=== PATIENT | female | born 1940 | race Caucasian/White ===

== ENCOUNTER 2020-04-14 12:54 | Inpatient (IN) | payer OTHER ==
[~2020-04-14] VITALS: Ht 162.6 cm; Wt 80.1 kg
[~2020-04-14 12:54] MED LIST: AMIO200 PO; ASPI81CH PO; ATOR40TA PO; Antivert25 MG PO; Ativan1 MG SL; Augmentin 875-1 EACH PO; CALCA500CH PO; CIPR500 PO; DOCU100; DONE5 PO; Docusate Sodiu1 EACH PO; ERGO400 PO; FLUO10 PO; FOLI1 PO; FURO20 PO; GINKO BILOBA; HYDACE5 PO; HYDR1TAB94 PO; LEVSOD100 PO; LEVSOD150; LEVSOD25 PO; LOSA50 PO; MECL25 PO; METR500 PO; MULVITMIND PO; NAPR500; NAPROSYN; Norco 5-325 Ta1 EACH PO; PEPTO BISMOL; PHYSICIANS1000 MCG/1 PO; POTCHL10ER PO; PRAV20 PO; Pravastatin Sod40 MG PO; RISE35; SILVER SUPPLEMENT; TAMO10; THYROID; VENL37.5; VENL37.5ER; VITAMIN B PO; Vitamin C100 MG PO; XARELTO20 MG PO; colloidal silver
[2020-04-14 13:05] LABS: Calcium, Ionized (POC) 1.15 mmol/L (1.10-1.46); Chloride (POC) 103 mmol/L (98-108); Glucose (ISTAT POC) 87 mg/dL (70-99); Hemoglobin (POC) 12.9 g/dL (12.0-16.0); Potassium (POC) 3.6 mmol/L (3.5-5.5); Sodium (POC) 141 mmol/L (135-148); Total CO2 (POC) 25 mmol/L (21-32)
[2020-04-14 13:12] LABS: BASOPHILS ABSOLUTE AUTO 0.08 K/mm3 (0.00-0.23); BASOPHILS PERCENT AUTO 1 % (0-2); EOSINOPHILS ABSOLUTE AUTO 0.18 K/mm3 (0.00-0.68); EOSINOPHILS PERCENT AUTO 3 % (0-6); Hematocrit 38.8 % (33.0-51.0); Hemoglobin 12.6 g/dL (11.5-16.0); IMMATURE GRAN ABSOLUTE AUTO 0.02 K/mm3 (0.00-0.10); IMMATURE GRAN PERCENT AUTO 0 % (0-1); LYMPHOCYTES ABSOLUTE AUTO 2.91 K/mm3 (0.84-5.20); LYMPHOCYTES PERCENT AUTO 45 % (21-46); MONOCYTES ABSOLUTE AUTO 0.45 K/mm3 (0.16-1.47); MONOCYTES PERCENT AUTO 7 % (4-13); Mean Corpuscular HGB 30.4 pg (26.0-34.0); Mean Corpuscular HGB Conc 32.5 g/dL (31.5-36.5); Mean Corpuscular Volume 94 fL (80-100); Mean Platelet Volume 10.2 fL (9.1-12.4); NEUTROPHILS ABSOLUTE AUTO 2.82 K/mm3 (1.96-9.15); NEUTROPHILS PERCENT AUTO 44 % (41-73); Platelet Count 182 K/mm3 (150-400); RDW Coefficient Variation 15.9 % (11.7-14.2); RDW Standard Deviation 54.5 fL (35.1-46.3); Red Blood Cell Count 4.15 M/mm3 (3.80-5.20); White Blood Cell Count 6.46 K/mm3 (4.00-11.30)
[2020-04-14 13:16] LABS: PO2 Arterial 95.6 mmHg (80-100); pH Blood Arterial 7.47 (7.35-7.45)
[2020-04-14 13:42] LABS: Alanine Aminotransfer (ALT/SGP 19 U/L (12-78); Albumin, Blood 4.2 g/dL (3.4-5.0); Albumin/Globulin Ratio 1.1 (0.8-1.8); Alk Phos 55 U/L (50-136); Anion Gap 3 mmol/L (6-16); Aspartate Aminotrans (AST/SGOT 49 U/L (12-37); Bilirubin, Total 0.7 mg/dL (0.1-1.0); Blood Urea Nitrogen 10 mg/dL (8-24); Bun/Creatinine Ratio 9.6 (12.0-20.0); CO2, Blood 30 mmol/L (21-32); Chloride, Blood 108 mmol/L (98-108); Creatinine, Blood 1.04 mg/dL (0.40-1.00); Globulin, Blood 3.7 g/dL (2.2-4.0); Glomerular Filtration Rate 55 (60-); Glucose, Blood 84 mg/dL (70-99); Potassium, Blood 3.3 mmol/L (3.5-5.5); Sodium, Blood 141 mmol/L (136-145); Total Protein, Blood 7.9 g/dL (6.4-8.2); Troponin I <0.015 ng/mL (0.000-0.040)
[2020-04-14 14:08] LABS: Free Thyroxine 0.22 ng/dL (0.70-1.60)
[2020-04-14 14:56] LABS: Source, Urine Clean Catch
[2020-04-14 15:09] LABS: Appearance, Urine Clear (Clear); Bilirubin, Urine Neg (Neg); Blood, Urine Neg (Neg); Color, Urine Yellow (P-Yellow); Glucose Qualitative, Urine Neg (Neg); Ketones, Urine Neg (Neg); Leukocyte Esterase, Urine Neg (Neg); Nitrite, Urine Neg (Neg); Protein, Urine Neg (Neg); Specific Gravity, Urine 1.015 (1.003-1.022); Urobilinogen, Urine NORM (Normal)
[2020-04-14] MEDS ORDERED: LEVSOD100 PO (15:30)
--- NOTE | 2020-04-14 18:40 | NUR ---
PT ARRIVED 1824 AOX3 AND COOPERATIVE OF CARE. PT IS A STANDBY ASSIST TO RESTROOM. CALL LIGHT IS WITHIN REACH. PT DENIES ANY PAIN AT THIS TIME AND STATED THE PAIN HAS RESOLVED. WILL CONTINUE TO MONITOR.
--- NOTE | 2020-04-14 20:26 | NUR ---
PT HAPPY AND COOPERATIVE; DENIES PAIN OR NAUSEA.
--- NOTE | 2020-04-14 22:44 | NUR ---
5726 REPORT RECEIVED FROM KRISTYN SALGUERO RN; PT MOVED FROM RM 352 TO 359 FOR NURSING CONVIENIENCE; ALERT AND ORIENTED X 4; DENIES PAIN OR NAUSEA.
--- NOTE | 2020-04-15 04:27 | NUR ---
SHIFT SUMMARY: 79 Y/O FEMALE RESTED COMFORTABLY ALL SHIFT; DENIES PAIN OR NAUSEA; TELEMETRY REFLECTS SINUS BRADYCARDIA PER ANTONY--ACCOUNT ASSISTANT; ALERT AND ORIENTED X 4; HAPPY AND COOPERATIVE; BED LOW POSITION WITH CALL LIGHT AT SIDE.
[2020-04-15 05:48] LABS: BASOPHILS PERCENT AUTO 2 % (0-2); EOSINOPHILS ABSOLUTE AUTO 0.27 K/mm3 (0.00-0.68); EOSINOPHILS PERCENT AUTO 4 % (0-6); Hematocrit 36.1 % (33.0-51.0); Hemoglobin 11.6 g/dL (11.5-16.0); IMMATURE GRAN ABSOLUTE AUTO 0.02 K/mm3 (0.00-0.10); IMMATURE GRAN PERCENT AUTO 0 % (0-1); LYMPHOCYTES ABSOLUTE AUTO 2.58 K/mm3 (0.84-5.20); LYMPHOCYTES PERCENT AUTO 38 % (21-46); MONOCYTES PERCENT AUTO 7 % (4-13); Mean Corpuscular HGB 30.1 pg (26.0-34.0); Mean Corpuscular HGB Conc 32.1 g/dL (31.5-36.5); Mean Corpuscular Volume 94 fL (80-100); Mean Platelet Volume 10.2 fL (9.1-12.4); NEUTROPHILS ABSOLUTE AUTO 3.39 K/mm3 (1.96-9.15); NEUTROPHILS PERCENT AUTO 49 % (41-73); Platelet Count 169 K/mm3 (150-400); RDW Coefficient Variation 15.9 % (11.7-14.2); RDW Standard Deviation 54.6 fL (35.1-46.3); Red Blood Cell Count 3.86 M/mm3 (3.80-5.20); White Blood Cell Count 6.86 K/mm3 (4.00-11.30)
[2020-04-15 06:42] LABS: Alanine Aminotransfer (ALT/SGP 19 U/L (12-78); Albumin, Blood 3.7 g/dL (3.4-5.0); Albumin/Globulin Ratio 1.1 (0.8-1.8); Alk Phos 51 U/L (50-136); Anion Gap 7 mmol/L (6-16); Aspartate Aminotrans (AST/SGOT 41 U/L (12-37); Bilirubin, Total 0.6 mg/dL (0.1-1.0); Blood Urea Nitrogen 14 mg/dL (8-24); Bun/Creatinine Ratio 15.4 (12.0-20.0); CO2, Blood 26 mmol/L (21-32); Calcium, Blood 8.9 mg/dL (8.5-10.1); Chloride, Blood 107 mmol/L (98-108); Creatinine, Blood 0.91 mg/dL (0.40-1.00); Free Thyroxine 0.51 ng/dL (0.70-1.60); Globulin, Blood 3.5 g/dL (2.2-4.0); Glomerular Filtration Rate >60 (60-); Glucose, Blood 89 mg/dL (70-99); Potassium, Blood 3.7 mmol/L (3.5-5.5); Sodium, Blood 140 mmol/L (136-145); Total Protein, Blood 7.2 g/dL (6.4-8.2); Triiodothyronine, Free 0.91 pg/mL (2.18-3.98)
--- NOTE | 2020-04-15 18:56 | NUR ---
SHIFT SUMMARY- PT ALERT AND ORIENTED, INDEPENDENT IN THE ROOM; HOWEVER WHEN THE PT WAS NAPPING AND WOKE UP TO GO TO THE BATHROOM, SHE WAS VERY UNSTEADY ON HER FEET. PASSED ON TO NIGHT SCIENTIST ELECTRONICS THAT THE PT WOULD NEED A BED ALARM.
--- NOTE | 2020-04-16 03:52 | NUR ---
SHIFT SUMMARY A/O, ABLE TO MAKE NEEDS KNOWN. COOPERATIVE WITH CARE. CALLS AND ANSWERS QUESTIONS APPROPRIATELY. NO C/O PAIN/DISCOMFORT. APPEARED TO REST MUCH OF SHIFT. NO ACUTE NEEDS OVERNIGHT. TELE RUNNING SINUS ROSE IN 50's WITHOUT ANY EVENTS. NO ACUTE CHANGES NOTED. BED REMAINS IN LOWEST POSITION; ALARM ON FOR SAFETY. CALL LIGHT AND BELONGINGS WITHIN REACH. WCTM. REPORT TO ONCOMING RN.
[2020-04-16 06:48] LABS: Albumin, Blood 3.5 g/dL (3.4-5.0); Bilirubin, Total 0.7 mg/dL (0.1-1.0); Bun/Creatinine Ratio 13.2 (12.0-20.0); Calcium, Blood 8.6 mg/dL (8.5-10.1); Creatinine, Blood 1.06 mg/dL (0.40-1.00); Free Thyroxine 0.45 ng/dL (0.70-1.60); Globulin, Blood 3.5 g/dL (2.2-4.0); Potassium, Blood 3.7 mmol/L (3.5-5.5); Triiodothyronine, Free 1.32 pg/mL (2.18-3.98)
--- NOTE | 2020-04-16 15:23 | NUR ---
PT DCD HOME WITH HER . MED REC FAXED TO PHARMACY OF CHOICE. ALL INSTRUCTIONS REVIEWED WITH THE PT WHO VERBALIZED AN UNDERSTANDING. IV REMOVED WITH NO ISSUE. ALL PERSONAL BELONGINGS SENT WITH THE PT. PT ASSISTED DOWNSTAIRS BY THE MANUFACTURING ENGINEERING TECHNICIAN.
== END 2020-04-16 15:13 | disposition home or self-care (01) | DRG 643 ==
LOC: ER 12:54 → MEDS 16:54 → ENPENDDIS 04-16 13:50 → MEDS 04-16 15:13
PROVIDERS: Emergency Medicine; Family Medicine; Student in an Organized Health Care Education/Training Program; ADMIT Hospitalist
DX: E03.8 Other specified hypothyroidism (principal); E03.5 Myxedema coma; E87.6 Hypokalemia; I10 Essential (primary) hypertension; R07.9 Chest pain, unspecified; R79.89 Other specified abnormal findings of blood chemistry; Z85.3 Personal history of malignant neoplasm of breast; Z85.850 Personal history of malignant neoplasm of thyroid; Z87.891 Personal history of nicotine dependence
CPT/HCPCS: 36415; 36600; 74177; 80047; 80053; 81003; 82533; 82803; 83880; 84439; 84443; 84481; 84484; 85014; 85025; 86850; 86900; 86901; 93005; 93010; 97161; 97530; 99285-25; A9270; A9270-GY; J1650; Q9967

== ENCOUNTER 2020-05-07 01:30 | Emergency (ER) | payer OTHER ==
[~2020-05-07] VITALS: Ht 160 cm; Wt 90.7 kg
[2020-05-07 01:56] LABS: BASOPHILS ABSOLUTE AUTO 0.11 K/mm3 (0.00-0.23); BASOPHILS PERCENT AUTO 2 % (0-2); EOSINOPHILS ABSOLUTE AUTO 0.19 K/mm3 (0.00-0.68); EOSINOPHILS PERCENT AUTO 3 % (0-6); Hematocrit 38.1 % (33.0-51.0); Hemoglobin 12.1 g/dL (11.5-16.0); IMMATURE GRAN ABSOLUTE AUTO 0.04 K/mm3 (0.00-0.10); IMMATURE GRAN PERCENT AUTO 1 % (0-1); LYMPHOCYTES PERCENT AUTO 43 % (21-46); MONOCYTES PERCENT AUTO 8 % (4-13); Mean Corpuscular HGB 30.7 pg (26.0-34.0); Mean Corpuscular HGB Conc 31.8 g/dL (31.5-36.5); Mean Corpuscular Volume 97 fL (80-100); NEUTROPHILS ABSOLUTE AUTO 3.24 K/mm3 (1.96-9.15); NEUTROPHILS PERCENT AUTO 45 % (41-73); Platelet Count 211 K/mm3 (150-400); RDW Coefficient Variation 14.3 % (11.7-14.2); RDW Standard Deviation 50.8 fL (35.1-46.3); Red Blood Cell Count 3.94 M/mm3 (3.80-5.20); White Blood Cell Count 7.28 K/mm3 (4.00-11.30)
[2020-05-07 02:12] LABS: Alanine Aminotransfer (ALT/SGP 20 U/L (12-78); Albumin, Blood 3.9 g/dL (3.4-5.0); Alk Phos 77 U/L (50-136); Anion Gap 6 mmol/L (6-16); Aspartate Aminotrans (AST/SGOT 37 U/L (12-37); Bilirubin, Total 0.6 mg/dL (0.1-1.0); Blood Urea Nitrogen 15 mg/dL (8-24); Bun/Creatinine Ratio 19.2 (12.0-20.0); CO2, Blood 28 mmol/L (21-32); Calcium, Blood 8.9 mg/dL (8.5-10.1); Chloride, Blood 107 mmol/L (98-108); Creatinine, Blood 0.78 mg/dL (0.40-1.00); Free Thyroxine 1.82 ng/dL (0.70-1.60); Glomerular Filtration Rate >60 (60-); Glucose, Blood 132 mg/dL (70-99); Magnesium, Blood 2.1 mg/dL (1.6-2.4); Potassium, Blood 3.6 mmol/L (3.5-5.5); Sodium, Blood 141 mmol/L (136-145); Thyroid Stimulating Hormone 0.522 uIU/mL (0.360-4.800); Total Protein, Blood 7.9 g/dL (6.4-8.2); Triiodothyronine, Free 3.76 pg/mL (2.18-3.98)
[2020-05-07 02:15] LABS: Source, Urine Catheter
[2020-05-07 02:19] LABS: Bilirubin, Urine Neg (Neg); Blood, Urine Neg (Neg); Glucose Qualitative, Urine Neg (Neg); Ketones, Urine 1+ (Neg); Leukocyte Esterase, Urine Neg (Neg); Nitrite, Urine Neg (Neg); Protein, Urine Neg (Neg); Specific Gravity, Urine 1.015 (1.003-1.022); Urobilinogen, Urine NORM (Normal)
[2020-05-07 02:21] LABS: Appearance, Urine Clear (Clear); Color, Urine Yellow (P-Yellow)
[2020-05-07] MEDS ORDERED: ONDA4ODT MM (03:00)
== END 2020-05-07 03:37 | disposition home or self-care (01) ==
LOC: ER 01:30
PROVIDERS: Emergency Medicine
DX: R11.2 Nausea with vomiting, unspecified (principal); Z88.2 Allergy status to sulfonamides; Z88.1 Allergy status to other antibiotic agents; Z91.09 Other allergy status, other than to drugs and biological substances; Z91.013 Allergy to seafood; Z79.899 Other long term (current) drug therapy; Z87.891 Personal history of nicotine dependence
CPT/HCPCS: 74176; 80053; 81003; 83690; 83735; 84439; 84443; 84481; 85025; 93005; 93010; 96361; 96374; 99285-25; J2765; J7030

== ENCOUNTER 2021-01-02 19:12 | Emergency (ER) | payer OTHER ==
[~2021-01-02] VITALS: Ht 160 cm; Wt 72.6 kg
[~2021-01-02 19:12] MED LIST changes: +ONDA4ODT MM
[2021-01-02] MEDS ORDERED: DONEPEZIL HCL5 M2 PO (19:27)
[2021-01-02 19:42] LABS: BASOPHILS ABSOLUTE AUTO 0.06 K/mm3 (0.00-0.23); BASOPHILS PERCENT AUTO 1 % (0-2); EOSINOPHILS ABSOLUTE AUTO 0.02 K/mm3 (0.00-0.68); EOSINOPHILS PERCENT AUTO 0 % (0-6); Hematocrit 37.3 % (33.0-51.0); Hemoglobin 11.9 g/dL (11.5-16.0); IMMATURE GRAN ABSOLUTE AUTO 0.01 K/mm3 (0.00-0.10); IMMATURE GRAN PERCENT AUTO 0 % (0-1); LYMPHOCYTES ABSOLUTE AUTO 1.21 K/mm3 (0.84-5.20); LYMPHOCYTES PERCENT AUTO 25 % (21-46); MONOCYTES ABSOLUTE AUTO 1.03 K/mm3 (0.16-1.47); MONOCYTES PERCENT AUTO 21 % (4-13); Mean Corpuscular HGB 27.7 pg (26.0-34.0); Mean Corpuscular HGB Conc 31.9 g/dL (31.5-36.5); Mean Corpuscular Volume 87 fL (80-100); Mean Platelet Volume 10.8 fL (9.1-12.4); NEUTROPHILS ABSOLUTE AUTO 2.48 K/mm3 (1.96-9.15); NEUTROPHILS PERCENT AUTO 52 % (41-73); Platelet Count 161 K/mm3 (150-400); RDW Coefficient Variation 14.2 % (11.7-14.2); Red Blood Cell Count 4.29 M/mm3 (3.80-5.20); White Blood Cell Count 4.81 K/mm3 (4.00-11.30)
[2021-01-02 20:07] LABS: Alanine Aminotransfer (ALT/SGP 18 U/L (12-78); Albumin, Blood 3.6 g/dL (3.4-5.0); Alk Phos 89 U/L (50-136); Anion Gap 8 mmol/L (6-16); Aspartate Aminotrans (AST/SGOT 31 U/L (12-37); Bilirubin, Total 0.3 mg/dL (0.1-1.0); Blood Urea Nitrogen 11 mg/dL (8-24); Bun/Creatinine Ratio 16.5 (12.0-20.0); CO2, Blood 22 mmol/L (21-32); Calcium, Blood 8.7 mg/dL (8.5-10.1); Chloride, Blood 108 mmol/L (98-108); Creatinine, Blood 0.67 mg/dL (0.40-1.00); Globulin, Blood 3.7 g/dL (2.2-4.0); Glomerular Filtration Rate >60 (60-); Glucose, Blood 108 mg/dL (70-99); Potassium, Blood 3.8 mmol/L (3.5-5.5); Sodium, Blood 138 mmol/L (136-145); Total Protein, Blood 7.3 g/dL (6.4-8.2)
== END 2021-01-02 21:26 | disposition home or self-care (01) ==
LOC: ER 19:12
PROVIDERS: Emergency Medicine
DX: R10.13 Epigastric pain (principal); Z88.2 Allergy status to sulfonamides; Z88.1 Allergy status to other antibiotic agents; Z91.048 Other nonmedicinal substance allergy status; Z91.013 Allergy to seafood; Z87.891 Personal history of nicotine dependence
CPT/HCPCS: 80053; 83690; 85025; 93005; 93010; 99284-25

== ENCOUNTER 2021-01-08 09:35 | Emergency (ER) | payer OTHER ==
[~2021-01-08] VITALS: Ht 154.9 cm; Wt 63.5 kg
[~2021-01-08 09:35] MED LIST changes: +DONEPEZIL HCL5 M2 PO
[2021-01-08 10:01] LABS: Hematocrit 38.2 % (33.0-51.0); Hemoglobin 12.5 g/dL (11.5-16.0); Mean Corpuscular HGB 27.9 pg (26.0-34.0); Mean Corpuscular HGB Conc 32.7 g/dL (31.5-36.5); Mean Corpuscular Volume 85 fL (80-100); Mean Platelet Volume 11.7 fL (9.1-12.4); Platelet Count 142 K/mm3 (150-400); RDW Coefficient Variation 13.7 % (11.7-14.2); RDW Standard Deviation 42.8 fL (35.1-46.3); Red Blood Cell Count 4.48 M/mm3 (3.80-5.20); White Blood Cell Count 3.14 K/mm3 (4.00-11.30)
[2021-01-08 10:29] LABS: BAND PERCENT MAN 3 % (0-8); BASOPHILS ABSOLUTE MAN 0.03 K/mm3 (0.00-0.23); BASOPHILS PERCENT MAN 1 % (0-2); EOSINOPHILS PERCENT MAN 0 % (0-6); LYMPHOCYTES ABSOLUTE MAN 1.31 K/mm3 (0.84-5.20); LYMPHOCYTES PERCENT MAN 42 % (21-46); MONOCYTES ABSOLUTE MAN 0.28 K/mm3 (0.16-1.47); MONOCYTES PERCENT MAN 9 % (4-13); SEG NEUTROPHILS PERCENT MAN 45 % (41-73); TOTAL CELLS COUNTED 100
[2021-01-08 10:30] LABS: Alanine Aminotransfer (ALT/SGP 22 U/L (12-78); Albumin, Blood 3.5 g/dL (3.4-5.0); Alk Phos 81 U/L (50-136); Anion Gap 6 mmol/L (6-16); Aspartate Aminotrans (AST/SGOT 46 U/L (12-37); Bilirubin, Total 0.5 mg/dL (0.1-1.0); Blood Urea Nitrogen 11 mg/dL (8-24); Bun/Creatinine Ratio 15.1 (12.0-20.0); CO2, Blood 25 mmol/L (21-32); Calcium, Blood 8.6 mg/dL (8.5-10.1); Chloride, Blood 108 mmol/L (98-108); Creatinine, Blood 0.73 mg/dL (0.40-1.00); Globulin, Blood 3.4 g/dL (2.2-4.0); Glomerular Filtration Rate >60 (60-); Glucose, Blood 114 mg/dL (70-99); Potassium, Blood 3.4 mmol/L (3.5-5.5); Sodium, Blood 139 mmol/L (136-145); Total Protein, Blood 6.9 g/dL (6.4-8.2); Troponin I <0.015 ng/mL (0.000-0.040)
== END 2021-01-08 11:50 | disposition home or self-care (01) ==
LOC: ER 09:35
PROVIDERS: Emergency Medicine
DX: U07.1 COVID-19 (principal); Z85.3 Personal history of malignant neoplasm of breast; Z79.890 Hormone replacement therapy
CPT/HCPCS: 36415; 71045; 80053; 83690; 84484; 85025; 93005; 93010; 99284-25; J7030; M0243; Q0243

== ENCOUNTER → 2021-02-19 | Outpatient (CLI) | payer OTHER ==
[2021-02-19 13:39] LABS: BASOPHILS ABSOLUTE AUTO 0.04 K/mm3 (0.00-0.23); BASOPHILS PERCENT AUTO 1 % (0-2); EOSINOPHILS ABSOLUTE AUTO 0.12 K/mm3 (0.00-0.68); EOSINOPHILS PERCENT AUTO 2 % (0-6); Hematocrit 39.8 % (33.0-51.0); Hemoglobin 12.9 g/dL (11.5-16.0); IMMATURE GRAN ABSOLUTE AUTO 0.01 K/mm3 (0.00-0.10); IMMATURE GRAN PERCENT AUTO 0 % (0-1); LYMPHOCYTES ABSOLUTE AUTO 1.96 K/mm3 (0.84-5.20); LYMPHOCYTES PERCENT AUTO 29 % (21-46); MONOCYTES PERCENT AUTO 7 % (4-13); Mean Corpuscular HGB 27.9 pg (26.0-34.0); Mean Corpuscular HGB Conc 32.4 g/dL (31.5-36.5); Mean Corpuscular Volume 86 fL (80-100); Mean Platelet Volume 10.2 fL (9.1-12.4); NEUTROPHILS ABSOLUTE AUTO 4.24 K/mm3 (1.96-9.15); NEUTROPHILS PERCENT AUTO 62 % (41-73); Platelet Count 227 K/mm3 (150-400); RDW Coefficient Variation 14.1 % (11.7-14.2); RDW Standard Deviation 43.8 fL (35.1-46.3); Red Blood Cell Count 4.63 M/mm3 (3.80-5.20); White Blood Cell Count 6.87 K/mm3 (4.00-11.30)
[2021-02-19 13:52] LABS: Alanine Aminotransfer (ALT/SGP 15 U/L (12-78); Albumin/Globulin Ratio 0.9 (0.8-1.8); Alk Phos 104 U/L (40-126); Anion Gap 8 mmol/L (6-16); Aspartate Aminotrans (AST/SGOT 21 U/L (12-37); Bilirubin, Total 0.6 mg/dL (0.1-1.0); Blood Urea Nitrogen 6 mg/dL (8-24); Bun/Creatinine Ratio 8.2 (12.0-20.0); CO2, Blood 29 mmol/L (21-32); Calcium, Blood 9.4 mg/dL (8.5-10.1); Chloride, Blood 104 mmol/L (98-108); Creatinine, Blood 0.73 mg/dL (0.40-1.00); Globulin, Blood 4.3 g/dL (2.2-4.0); Glomerular Filtration Rate >60 (60-); Glucose, Blood 108 mg/dL (70-99); Potassium, Blood 4.1 mmol/L (3.5-5.5); Sodium, Blood 141 mmol/L (136-145); Total Protein, Blood 8.3 g/dL (6.4-8.2); Troponin I <0.017 ng/mL (0.000-0.040)
== END | disposition home or self-care (01) ==
LOC: LAB 13:34 → LAB SHORT 13:34
PROVIDERS: Physician Assistant Medical
DX: R06.00 Dyspnea, unspecified (principal)
CPT/HCPCS: 80053; 84484; 85025; 85379

== ENCOUNTER 2021-06-02 13:22 | Emergency (ER) | payer OTHER ==
[~2021-06-02] VITALS: Ht 170.2 cm; Wt 68.0 kg
[2021-06-02 13:47] LABS: BASOPHILS ABSOLUTE AUTO 0.07 K/mm3 (0.00-0.23); BASOPHILS PERCENT AUTO 1 % (0-2); EOSINOPHILS ABSOLUTE AUTO 0.28 K/mm3 (0.00-0.68); EOSINOPHILS PERCENT AUTO 5 % (0-6); Hematocrit 39.4 % (33.0-51.0); Hemoglobin 12.8 g/dL (11.5-16.0); IMMATURE GRAN ABSOLUTE AUTO 0.01 K/mm3 (0.00-0.10); IMMATURE GRAN PERCENT AUTO 0 % (0-1); LYMPHOCYTES ABSOLUTE AUTO 2.25 K/mm3 (0.84-5.20); LYMPHOCYTES PERCENT AUTO 38 % (21-46); MONOCYTES PERCENT AUTO 10 % (4-13); Mean Corpuscular HGB 27.6 pg (26.0-34.0); Mean Corpuscular HGB Conc 32.5 g/dL (31.5-36.5); Mean Corpuscular Volume 85 fL (80-100); Mean Platelet Volume 10.1 fL (9.1-12.4); NEUTROPHILS ABSOLUTE AUTO 2.68 K/mm3 (1.96-9.15); NEUTROPHILS PERCENT AUTO 45 % (41-73); Platelet Count 190 K/mm3 (150-400); RDW Coefficient Variation 14.6 % (11.7-14.2); RDW Standard Deviation 45.4 fL (35.1-46.3); Red Blood Cell Count 4.63 M/mm3 (3.80-5.20); White Blood Cell Count 5.89 K/mm3 (4.00-11.30)
[2021-06-02] MEDS ORDERED: COLLOIDAL SILVER (13:55)
[2021-06-02 14:05] LABS: PCO2 Arterial 35.1 mmHg (35-45); PO2 Arterial 91.7 mmHg (80-100); pH Blood Arterial 7.45 (7.35-7.45)
[2021-06-02 14:21] LABS: Alanine Aminotransfer (ALT/SGP 16 U/L (12-78); Albumin, Blood 3.5 g/dL (3.4-5.0); Albumin/Globulin Ratio 0.9 (0.8-1.8); Alk Phos 93 U/L (50-136); Anion Gap 6 mmol/L (6-16); Aspartate Aminotrans (AST/SGOT 19 U/L (12-37); Bilirubin, Total 0.6 mg/dL (0.1-1.0); Blood Urea Nitrogen 8 mg/dL (8-24); CO2, Blood 27 mmol/L (21-32); Calcium, Blood 9.2 mg/dL (8.5-10.1); Chloride, Blood 109 mmol/L (98-108); Creatinine, Blood 0.73 mg/dL (0.40-1.00); Globulin, Blood 3.7 g/dL (2.2-4.0); Glomerular Filtration Rate >60 (60-); Glucose, Blood 98 mg/dL (70-99); Sodium, Blood 142 mmol/L (136-145); Thyroid Stimulating Hormone <0.005 uIU/mL (0.360-4.800); Total Protein, Blood 7.2 g/dL (6.4-8.2); Troponin I <0.015 ng/mL (0.000-0.040)
[2021-06-02 14:37] LABS: Source, Urine Catheter
[2021-06-02 14:38] LABS: Influenza A, PCR NEGATIVE (NEGATIVE); Influenza B, PCR NEGATIVE (NEGATIVE); Resp Syncytial Virus, PCR NEGATIVE (NEGATIVE); SARS-Cov-2 (COVID-19) PCR, MMC NEGATIVE (NEGATIVE)
[2021-06-02 14:56] LABS: Appearance, Urine Clear (Clear); Bilirubin, Urine Neg (Neg); Blood, Urine Neg (Neg); Glucose Qualitative, Urine Neg (Neg); Ketones, Urine Neg (Neg); Leukocyte Esterase, Urine Neg (Neg); Nitrite, Urine Neg (Neg); Protein, Urine Neg (Neg); Urobilinogen, Urine NORM (Normal)
[2021-06-02 15:01] LABS: Color, Urine Pale Yellow (P-Yellow)
== END 2021-06-02 16:00 | disposition home or self-care (01) ==
LOC: ER 13:22
PROVIDERS: Emergency Medicine
DX: R53.1 Weakness (principal)
CPT/HCPCS: 0241U; 36415; 36600; 51701; 71045; 80053; 81003; 82803; 83605; 84439; 84443; 84484; 85025; 93005; 93010; 99285-25; J7030

== ENCOUNTER 2022-03-25 16:14 | Inpatient (IN) | payer OTHER ==
[~2022-03-25] VITALS: Ht 162.6 cm; Wt 72.8 kg
[~2022-03-25 16:14] MED LIST changes: +COLLOIDAL SILVER
[2022-03-25 19:00] LABS: BASOPHILS ABSOLUTE AUTO 0.06 K/mm3 (0.00-0.23); BASOPHILS PERCENT AUTO 1 % (0-2); EOSINOPHILS ABSOLUTE AUTO 0.09 K/mm3 (0.00-0.68); EOSINOPHILS PERCENT AUTO 1 % (0-6); Hematocrit 30.6 % (33.0-51.0); Hemoglobin 9.9 g/dL (11.5-16.0); IMMATURE GRAN ABSOLUTE AUTO 0.05 K/mm3 (0.00-0.10); IMMATURE GRAN PERCENT AUTO 1 % (0-1); LYMPHOCYTES ABSOLUTE AUTO 1.13 K/mm3 (0.84-5.20); LYMPHOCYTES PERCENT AUTO 13 % (21-46); MONOCYTES ABSOLUTE AUTO 0.66 K/mm3 (0.16-1.47); MONOCYTES PERCENT AUTO 7 % (4-13); Mean Corpuscular HGB 31.5 pg (26.0-34.0); Mean Corpuscular HGB Conc 32.4 g/dL (31.5-36.5); Mean Corpuscular Volume 98 fL (80-100); NEUTROPHILS ABSOLUTE AUTO 7.03 K/mm3 (1.96-9.15); NEUTROPHILS PERCENT AUTO 78 % (41-73); Platelet Count 151 K/mm3 (150-400); RDW Coefficient Variation 13.1 % (11.7-14.2); RDW Standard Deviation 46.6 fL (35.1-46.3); Red Blood Cell Count 3.14 M/mm3 (3.80-5.20); White Blood Cell Count 9.02 K/mm3 (4.00-11.30)
[2022-03-25 19:23] LABS: Albumin/Globulin Ratio 1.1 (0.8-1.8); Bilirubin, Total 0.2 mg/dL (0.1-1.0); Bun/Creatinine Ratio 12.3 (12.0-20.0); Calcium, Blood 7.5 mg/dL (8.5-10.1); Creatinine, Blood 0.73 mg/dL (0.40-1.00); Globulin, Blood 2.7 g/dL (2.2-4.0); Potassium, Blood 2.7 mmol/L (3.5-5.5); Total Protein, Blood 5.7 g/dL (6.4-8.2)
[2022-03-25 19:35] LABS: Free Thyroxine 0.58 ng/dL (0.70-1.60); Thyroid Stimulating Hormone 52.2 uIU/mL (0.360-4.800); Thyroxine (T4) 4.4 ug/dL (4.8-13.9); Triiodothyronine, Free 1.48 pg/mL (2.18-3.98)
--- NOTE | 2022-03-25 23:07 | NUR ---
ADMIT NOTE PT ARRIVED TO PCU FROM ED VIA ED STRETCHER SHORTLY AFTER SHIFT CHANGE. PT WAS SLID BY 5 STAFF FROM ED STRETCHER TO PCU BED. PT ALERT, SOMEWHAT CONFUSED. REFERS TO CALLING HER FOR MOST MEDICAL HISTORY/MEDICATIONS. PT CRYING FROM L HIP/L KNEE PAIN. CALL PLACED TO MD DANNY W/ ORDERS FOR FENTANYL, SEE EMAR. ICE APPLIED TO HIP. PT C/O OF BEING COLD, WARM BLANKETS APPLIED WELL HEATING PAD AROUND SHOULDERS. PURWIK TO SUCTION. UPON ADMIT, PT POTASSIUM LAB WAS 2.7. CALL PLACED TO MD MCLAUGHLIN. MD Liu W/ ORDERS FOR POTASSIUM, SEE MAR. PT ORIENTED TO ROOM, CALL LIGHT, RESTING IN ROOM.
[2022-03-26 06:26] LABS: BASOPHILS ABSOLUTE AUTO 0.06 K/mm3 (0.00-0.23); BASOPHILS PERCENT AUTO 1 % (0-2); EOSINOPHILS ABSOLUTE AUTO 0.03 K/mm3 (0.00-0.68); EOSINOPHILS PERCENT AUTO 0 % (0-6); Hematocrit 36.5 % (33.0-51.0); Hemoglobin 11.5 g/dL (11.5-16.0); IMMATURE GRAN ABSOLUTE AUTO 0.04 K/mm3 (0.00-0.10); IMMATURE GRAN PERCENT AUTO 0 % (0-1); LYMPHOCYTES ABSOLUTE AUTO 1.28 K/mm3 (0.84-5.20); LYMPHOCYTES PERCENT AUTO 12 % (21-46); MONOCYTES ABSOLUTE AUTO 0.82 K/mm3 (0.16-1.47); MONOCYTES PERCENT AUTO 8 % (4-13); Mean Corpuscular HGB 30.3 pg (26.0-34.0); Mean Corpuscular HGB Conc 31.5 g/dL (31.5-36.5); Mean Corpuscular Volume 96 fL (80-100); Mean Platelet Volume 10.7 fL (9.1-12.4); NEUTROPHILS ABSOLUTE AUTO 8.72 K/mm3 (1.96-9.15); NEUTROPHILS PERCENT AUTO 80 % (41-73); Platelet Count 166 K/mm3 (150-400); RDW Coefficient Variation 13.1 % (11.7-14.2); RDW Standard Deviation 46.8 fL (35.1-46.3); Red Blood Cell Count 3.79 M/mm3 (3.80-5.20); White Blood Cell Count 10.95 K/mm3 (4.00-11.30)
[2022-03-26 07:07] LABS: Albumin, Blood 3.3 g/dL (3.4-5.0); Bilirubin, Total 0.7 mg/dL (0.1-1.0); Bun/Creatinine Ratio 13.3 (12.0-20.0); Calcium, Blood 8.6 mg/dL (8.5-10.1); Creatinine, Blood 0.75 mg/dL (0.40-1.00); Globulin, Blood 3.4 g/dL (2.2-4.0); Potassium, Blood 4.2 mmol/L (3.5-5.5); Total Protein, Blood 6.7 g/dL (6.4-8.2)
[2022-03-26 07:27] LABS: Magnesium, Blood 1.9 mg/dL (1.6-2.4); Phosphorus, Blood 2.6 mg/dL (2.5-4.9)
--- NOTE | 2022-03-26 14:07 | NUR ---
TRANSFER PT ARRIVED FROM PACU, REPORT RECIEVED FROM SPECIAL PROCEDURE TECH. FAMILY PRESENT WHEN PATIENT ARRIVED. RICCI CURRENTLY DENIES PAIN AND IS ASLEEP ON HER RIGHT SIDE. CALL LIGHT IN REACH. DENIES FURTHER NEEDS AT THIS TIME. DAY SURGERY ON THEIR WAY TO MINE EXPERT PATIENT AT THIS TIME.
--- NOTE | 2022-03-26 14:15 | NUR ---
PT TRANSFERRED TO SURGICAL RM 215, REPORT GIVEN AT BEDSIDE TO MIKALA PAINTER. FRIEND TAVIA AND SPOUSE AT BEDSIDE DURING TRANSPORT, BOTH AWARE OF THE PLAN OF CARE, PT FOR SURGERY BY DR DAWSON AT APROX 1600. PT A&OX3, GETS CONFUSED DISTRACTED WITH THE PAIN, CANT FOCUS ON ANSWERING QUESTIONS DUE TO PAIN, RECEIVE FENTANYL IV TOTAL OF 150MG SINCE SHIFT CHANGE UNTIL PT WAS TRANSFERRED TO SURGICAL FLOOR AND ADDITIONAL 10MG OF OXYCODONE PO, DR PEÑA WAS CALLED AND MADE AWARE ABOUT PT'S PAIN OKAY TO GIVE FENTANYL IV FOR NOW UNTIL PT GETS SURGERY DONE. VITALS HRR SR , TRANSITIONED TO NO TELE. BP SYSTOLIC ELEVATED TO 160'S WHEN IN PAIN, MOSTLY 130-150'S SBP, SATS ABOVE 95% ON RA, AFEBRILE. PT LAYING MOSTLY ON RIGHT SIDE FOR COMFORT CANT TOLERATE LAYING ON BACK DUE TO PAIN, PUREWICK IN PLACE, VOIDING DECENT AMOUNT OF URINE. NO OTHER COMPLAINS REPORTED KEPT NPO FOR THE PROCEDURE. ALL BELONGINGS SENT WITH THE PT, WILL MONITOR
--- NOTE | 2022-03-26 14:16 | NUR ---
Upon receiving a referral for spiritual care, I visit pt. Pt immediately tells me that she is nervous about her upcoming surgery and asks me to pray for her, which I gladly do. Pt then tells me about her family, her Tenriism dank and her fall. Pt shows signs of reduced stress and increased peace. I will continue to remain available to pt and family.
--- NOTE | 2022-03-26 14:30 | NUR ---
PT OUT OF ROOM FOR PROCEDURE AT THIS TIME.
--- NOTE | 2022-03-26 15:27 | NUR ---
PT TO DAY SURGERY VIA BED FOR LEFT DAILY HIP SURGERY WITH DR DAWSON. PT STATES VERY PAINFUL AND LAYING ON RIGHT SIDE AND STATES SHE DOESN'T WANT TO MOVE FROM HER SIDE. STATES SHE HAS TO VOID. PURWICK IN PLACE AND PT VOIDED HOWEVER ATTENDS WAS SOILED, REMOVED ATTENDS, SKIN CLEANED AND 2ND SET OF HCG WIPES TO LEFT HIP. FIELD START IV DRG WAS REMOVED, CHLORHEXIDE PREP USED AND NEW WINDOW DRG APPLIED, FLUSHED WITH 10CC NS, FLUSHED WELL, NO PAIN. PT STATES SHE ALWAYS HAS A BLUE HUE TO HER SKIN SHE TAKES COLLOIDAL SILVER SUPPLEMENT. TOP DENTURE AND PT SOCKS RETURNED TO PT ROOM IN PCU.
--- NOTE | 2022-03-27 04:28 | NUR ---
SUMMARY PT PAIN MANAGED WELL. PT HAS BEEN VOIDING VIA BED BRAY. PT IS FORGETFUL AT TIMES WITH PERIODS OF CONFUSION. PT IS PLESANT AND COOPERATIVE. PT WAS ASSISTED TO BSC BUT DID NOT TOLERATE WELL. PT DRESSING ARE C/D/I. PT CURRENTLY SLEEPING AND IN NO DISTRESS. CALL LIGHT IN REACH.
[2022-03-27 04:57] LABS: BASOPHILS ABSOLUTE AUTO 0.02 K/mm3 (0.00-0.23); BASOPHILS PERCENT AUTO 0 % (0-2); EOSINOPHILS PERCENT AUTO 0 % (0-6); Hematocrit 29.3 % (33.0-51.0); Hemoglobin 9.9 g/dL (11.5-16.0); IMMATURE GRAN ABSOLUTE AUTO 0.08 K/mm3 (0.00-0.10); IMMATURE GRAN PERCENT AUTO 1 % (0-1); LYMPHOCYTES ABSOLUTE AUTO 1.01 K/mm3 (0.84-5.20); LYMPHOCYTES PERCENT AUTO 8 % (21-46); MONOCYTES PERCENT AUTO 7 % (4-13); Mean Corpuscular HGB 32.1 pg (26.0-34.0); Mean Corpuscular HGB Conc 33.8 g/dL (31.5-36.5); Mean Corpuscular Volume 95 fL (80-100); Mean Platelet Volume 10.5 fL (9.1-12.4); NEUTROPHILS ABSOLUTE AUTO 10.95 K/mm3 (1.96-9.15); NEUTROPHILS PERCENT AUTO 85 % (41-73); Platelet Count 149 K/mm3 (150-400); RDW Standard Deviation 45.1 fL (35.1-46.3); Red Blood Cell Count 3.08 M/mm3 (3.80-5.20); White Blood Cell Count 12.96 K/mm3 (4.00-11.30)
[2022-03-27 05:16] LABS: Albumin, Blood 3.3 g/dL (3.4-5.0); Albumin/Globulin Ratio 1.1 (0.8-1.8); Bilirubin, Total 0.5 mg/dL (0.1-1.0); Bun/Creatinine Ratio 14.8 (12.0-20.0); Calcium, Blood 8.8 mg/dL (8.5-10.1); Creatinine, Blood 0.81 mg/dL (0.40-1.00); Globulin, Blood 3.1 g/dL (2.2-4.0); Potassium, Blood 4.2 mmol/L (3.5-5.5); Total Protein, Blood 6.4 g/dL (6.4-8.2)
--- NOTE | 2022-03-27 19:11 | NUR ---
SHIFT SUMMARY POD1 L FEMUR RODDING, A/OX4 THOUGH PT IS FORGETFUL AT TIMES BUT EASILY REORIENTED, VSS, TOLERATING PO, VOIDING WELL, PAIN WELL MANAGED. PT WORKED WITH THERAPY TODAY AND DID WELL. NO ACUTE EVENTS THIS SHIFT, CALL LIGHT IN REACH, REPORT GIVEN TO PEGGY RN.
[2022-03-28 04:07] LABS: BASOPHILS ABSOLUTE AUTO 0.08 K/mm3 (0.00-0.23); BASOPHILS PERCENT AUTO 1 % (0-2); EOSINOPHILS ABSOLUTE AUTO 0.25 K/mm3 (0.00-0.68); EOSINOPHILS PERCENT AUTO 3 % (0-6); Hematocrit 29.6 % (33.0-51.0); Hemoglobin 9.8 g/dL (11.5-16.0); IMMATURE GRAN ABSOLUTE AUTO 0.04 K/mm3 (0.00-0.10); IMMATURE GRAN PERCENT AUTO 0 % (0-1); LYMPHOCYTES PERCENT AUTO 26 % (21-46); MONOCYTES ABSOLUTE AUTO 1.01 K/mm3 (0.16-1.47); MONOCYTES PERCENT AUTO 11 % (4-13); Mean Corpuscular HGB 31.8 pg (26.0-34.0); Mean Corpuscular HGB Conc 33.1 g/dL (31.5-36.5); Mean Corpuscular Volume 96 fL (80-100); Mean Platelet Volume 10.6 fL (9.1-12.4); NEUTROPHILS ABSOLUTE AUTO 5.63 K/mm3 (1.96-9.15); NEUTROPHILS PERCENT AUTO 60 % (41-73); Platelet Count 143 K/mm3 (150-400); RDW Standard Deviation 46.1 fL (35.1-46.3); Red Blood Cell Count 3.08 M/mm3 (3.80-5.20); White Blood Cell Count 9.41 K/mm3 (4.00-11.30)
--- NOTE | 2022-03-28 05:01 | NUR ---
A/O X3- FORGETFUL AT TIMES. POD2 L HIP RODDING- DRESSINGS C/D/I. 3 INCISIONS, COVRED WITH GAUZED FOAM TAPE, PAIN MANAGED W/PO PAIN MEDICATINS. VOIDING WELL AND REPORTS PASSING FLATUS. VITAL SIGNS STABLE. TELE REMAINS IN PLACE. WILL CONTINUE WILL CONTINUE TO MONITOR AND REPORT TO AYAN PAINTER.
[2022-03-28 11:40] LABS: SARS-Cov-2 (COVID-19) PCR, MMC NEGATIVE (NEGATIVE)
--- NOTE | 2022-03-28 12:58 | NUR ---
DISCHARGE SUMMARY POD2 L FEMUR RODDING, A/O X4 THOUGH FORGETFUL BUT EASILY REORIENTED, PAIN WELL MANAGED, TOLERATING PO, VOIDING, FLATUS, AMBULATING c FWW/GB. IV ACCESS REMOVED AND NO DEVICES IN PLACE AT TIME OF DEPARTURE. CALLED REPORT TO [facility] WHO HAD NO QUESTIONS. DC PACKET SENT WITH [facility].
== END 2022-03-28 12:34 | DRG 481 ==
LOC: ER 16:14 → PCU 19:00 → SURS 03-26 14:03
PROVIDERS: Family Medicine; Orthopaedic Surgery; Student in an Organized Health Care Education/Training Program; ADMIT Hospitalist
PROC: 0QS736Z Reposition Left Upper Femur with Intramedullary Internal Fixation Device, Percutaneous Approach (ICD-10-PCS; principal; 2022-03-26 16:00)
DX: S72.142A Displaced intertrochanteric fracture of left femur, initial encounter for closed fracture (principal); D62 Acute posthemorrhagic anemia; E03.9 Hypothyroidism, unspecified; F03.90 Unspecified dementia, unspecified severity, without behavioral disturbance, psychotic disturbance, mood disturbance, and anxiety; D72.828 Other elevated white blood cell count; Z88.1 Allergy status to other antibiotic agents; Z88.2 Allergy status to sulfonamides; Z91.040 Latex allergy status; Z91.013 Allergy to seafood; Z85.3 Personal history of malignant neoplasm of breast; Z90.10 Acquired absence of unspecified breast and nipple; Z90.49 Acquired absence of other specified parts of digestive tract; Z95.2 Presence of prosthetic heart valve; Z79.899 Other long term (current) drug therapy; W01.0XXA Fall on same level from slipping, tripping and stumbling without subsequent striking against object, initial encounter
CPT/HCPCS: 36415; 73502; 80053; 82533; 83735; 84100; 84436; 84439; 84443; 84481; 85025; 93005; 93010; 94760; 97110; 97116; 97162; 97166; 97530; 97535; A9270; C1713; J0171; J0690; J0735; J1100; J1885; J2405; J2704; J2795; J3010; J3480; J7050; J7120; U0004

== ENCOUNTER 2022-08-15 09:53 | Inpatient (IN) | payer OTHER ==
[~2022-08-15] VITALS: Ht 167.6 cm; Wt 65.4 kg
[~2022-08-15 09:53] MED LIST changes: +AMOCLA875 PO; +DONE10 PO; +VISBIOME 112.51 EACH PO
[2022-08-15 10:26] LABS: Source, Urine Straight Cath
[2022-08-15 10:29] LABS: BASOPHILS ABSOLUTE AUTO 0.07 K/mm3 (0.00-0.23); BASOPHILS PERCENT AUTO 1 % (0-2); EOSINOPHILS ABSOLUTE AUTO 0.02 K/mm3 (0.00-0.68); EOSINOPHILS PERCENT AUTO 0 % (0-6); Hematocrit 38.7 % (33.0-51.0); Hemoglobin 12.5 g/dL (11.5-16.0); IMMATURE GRAN ABSOLUTE AUTO 0.08 K/mm3 (0.00-0.10); IMMATURE GRAN PERCENT AUTO 1 % (0-1); LYMPHOCYTES ABSOLUTE AUTO 1.55 K/mm3 (0.84-5.20); LYMPHOCYTES PERCENT AUTO 12 % (21-46); MONOCYTES ABSOLUTE AUTO 1.24 K/mm3 (0.16-1.47); MONOCYTES PERCENT AUTO 9 % (4-13); Mean Corpuscular HGB 27.4 pg (26.0-34.0); Mean Corpuscular HGB Conc 32.3 g/dL (31.5-36.5); Mean Corpuscular Volume 85 fL (80-100); NEUTROPHILS ABSOLUTE AUTO 10.18 K/mm3 (1.96-9.15); NEUTROPHILS PERCENT AUTO 78 % (41-73); RDW Coefficient Variation 15.2 % (11.7-14.2); RDW Standard Deviation 46.5 fL (35.1-46.3); Red Blood Cell Count 4.56 M/mm3 (3.80-5.20); White Blood Cell Count 13.14 K/mm3 (4.00-11.30)
[2022-08-15 10:31] LABS: Platelet Count 257 K/mm3 (150-400)
[2022-08-15 10:36] LABS: Albumin, Blood 3.3 g/dL (3.4-5.0); Albumin/Globulin Ratio 0.7 (0.8-1.8); Bilirubin, Total 0.8 mg/dL (0.1-1.0); Bun/Creatinine Ratio 14.1 (12.0-20.0); Calcium, Blood 8.9 mg/dL (8.5-10.1); Creatinine, Blood 0.64 mg/dL (0.40-1.00); Globulin, Blood 4.6 g/dL (2.2-4.0); Potassium, Blood 3.9 mmol/L (3.5-5.5); Total Protein, Blood 7.9 g/dL (6.4-8.2)
[2022-08-15 11:01] LABS: Appearance, Urine Clear (Clear); Bilirubin, Urine Neg (Neg); Blood, Urine Neg (Neg); Color, Urine Yellow (P-Yellow); Glucose Qualitative, Urine Neg (Neg); Ketones, Urine Neg (Neg); Leukocyte Esterase, Urine Neg (Neg); Nitrite, Urine Neg (Neg); Protein, Urine 1+ (Neg); Urobilinogen, Urine NORM (Normal)
[2022-08-15 13:09] LABS: Base Excess Venous -0.9 mmol/L; Bicarbonate Venous 23.3 mmol/L (24.0-30.0); PCO2 Venous 46.2 mmHg (38-42); pH Blood Venous 7.34 (7.34-7.37)
[2022-08-16 04:56] LABS: BASOPHILS ABSOLUTE AUTO 0.06 K/mm3 (0.00-0.23); BASOPHILS PERCENT AUTO 1 % (0-2); EOSINOPHILS ABSOLUTE AUTO 0.04 K/mm3 (0.00-0.68); EOSINOPHILS PERCENT AUTO 0 % (0-6); Hematocrit 33.3 % (33.0-51.0); Hemoglobin 10.8 g/dL (11.5-16.0); IMMATURE GRAN ABSOLUTE AUTO 0.05 K/mm3 (0.00-0.10); IMMATURE GRAN PERCENT AUTO 0 % (0-1); LYMPHOCYTES ABSOLUTE AUTO 1.65 K/mm3 (0.84-5.20); LYMPHOCYTES PERCENT AUTO 14 % (21-46); MONOCYTES ABSOLUTE AUTO 1.56 K/mm3 (0.16-1.47); MONOCYTES PERCENT AUTO 13 % (4-13); Mean Corpuscular HGB 27.9 pg (26.0-34.0); Mean Corpuscular HGB Conc 32.4 g/dL (31.5-36.5); Mean Corpuscular Volume 86 fL (80-100); Mean Platelet Volume 10.1 fL (9.1-12.4); NEUTROPHILS ABSOLUTE AUTO 8.84 K/mm3 (1.96-9.15); NEUTROPHILS PERCENT AUTO 73 % (41-73); Platelet Count 248 K/mm3 (150-400); RDW Coefficient Variation 15.2 % (11.7-14.2); RDW Standard Deviation 47.6 fL (35.1-46.3); Red Blood Cell Count 3.87 M/mm3 (3.80-5.20)
[2022-08-16 05:17] LABS: Bun/Creatinine Ratio 14.5 (12.0-20.0); Calcium, Blood 8.3 mg/dL (8.5-10.1); Creatinine, Blood 0.76 mg/dL (0.40-1.00); Potassium, Blood 3.8 mmol/L (3.5-5.5)
[2022-08-17 05:02] LABS: BASOPHILS ABSOLUTE AUTO 0.04 K/mm3 (0.00-0.23); BASOPHILS PERCENT AUTO 0 % (0-2); EOSINOPHILS ABSOLUTE AUTO 0.07 K/mm3 (0.00-0.68); EOSINOPHILS PERCENT AUTO 1 % (0-6); Hematocrit 30.6 % (33.0-51.0); Hemoglobin 9.8 g/dL (11.5-16.0); IMMATURE GRAN ABSOLUTE AUTO 0.04 K/mm3 (0.00-0.10); IMMATURE GRAN PERCENT AUTO 0 % (0-1); LYMPHOCYTES ABSOLUTE AUTO 1.47 K/mm3 (0.84-5.20); LYMPHOCYTES PERCENT AUTO 13 % (21-46); MONOCYTES ABSOLUTE AUTO 1.28 K/mm3 (0.16-1.47); MONOCYTES PERCENT AUTO 11 % (4-13); Mean Corpuscular HGB 27.6 pg (26.0-34.0); Mean Corpuscular Volume 86 fL (80-100); Mean Platelet Volume 10.6 fL (9.1-12.4); NEUTROPHILS ABSOLUTE AUTO 8.77 K/mm3 (1.96-9.15); NEUTROPHILS PERCENT AUTO 75 % (41-73); Platelet Count 224 K/mm3 (150-400); RDW Coefficient Variation 14.8 % (11.7-14.2); RDW Standard Deviation 46.7 fL (35.1-46.3); Red Blood Cell Count 3.55 M/mm3 (3.80-5.20); White Blood Cell Count 11.67 K/mm3 (4.00-11.30)
[2022-08-17 05:33] LABS: Albumin, Blood 2.5 g/dL (3.4-5.0); Anion Gap 2 mmol/L (6-16); Blood Urea Nitrogen 10 mg/dL (8-24); CO2, Blood 26 mmol/L (21-32); Calcium, Blood 8.2 mg/dL (8.5-10.1); Chloride, Blood 109 mmol/L (98-108); Creatinine, Blood 0.67 mg/dL (0.40-1.00); Glomerular Filtration Rate 89 (60-); Glucose, Blood 127 mg/dL (70-99); Phosphorus, Blood 2.5 mg/dL (2.5-4.9); Potassium, Blood 3.4 mmol/L (3.5-5.5); Sodium, Blood 137 mmol/L (136-145)
[2022-08-18 04:24] LABS: BASOPHILS ABSOLUTE AUTO 0.06 K/mm3 (0.00-0.23); BASOPHILS PERCENT AUTO 1 % (0-2); EOSINOPHILS ABSOLUTE AUTO 0.26 K/mm3 (0.00-0.68); EOSINOPHILS PERCENT AUTO 3 % (0-6); Hemoglobin 9.4 g/dL (11.5-16.0); IMMATURE GRAN ABSOLUTE AUTO 0.04 K/mm3 (0.00-0.10); IMMATURE GRAN PERCENT AUTO 1 % (0-1); LYMPHOCYTES ABSOLUTE AUTO 1.76 K/mm3 (0.84-5.20); LYMPHOCYTES PERCENT AUTO 21 % (21-46); MONOCYTES ABSOLUTE AUTO 1.02 K/mm3 (0.16-1.47); MONOCYTES PERCENT AUTO 12 % (4-13); Mean Corpuscular HGB 27.1 pg (26.0-34.0); Mean Corpuscular HGB Conc 31.3 g/dL (31.5-36.5); Mean Corpuscular Volume 87 fL (80-100); Mean Platelet Volume 10.8 fL (9.1-12.4); NEUTROPHILS ABSOLUTE AUTO 5.36 K/mm3 (1.96-9.15); NEUTROPHILS PERCENT AUTO 63 % (41-73); Platelet Count 234 K/mm3 (150-400); RDW Coefficient Variation 14.8 % (11.7-14.2); RDW Standard Deviation 47.1 fL (35.1-46.3); Red Blood Cell Count 3.47 M/mm3 (3.80-5.20)
[2022-08-18 04:58] LABS: Albumin, Blood 2.3 g/dL (3.4-5.0); Anion Gap 6 mmol/L (6-16); Blood Urea Nitrogen 9 mg/dL (8-24); Bun/Creatinine Ratio 13.2 (12.0-20.0); CO2, Blood 26 mmol/L (21-32); Calcium, Blood 8.1 mg/dL (8.5-10.1); Chloride, Blood 111 mmol/L (98-108); Creatinine, Blood 0.68 mg/dL (0.40-1.00); Glomerular Filtration Rate 89 (60-); Glucose, Blood 102 mg/dL (70-99); Phosphorus, Blood 2.6 mg/dL (2.5-4.9); Potassium, Blood 3.3 mmol/L (3.5-5.5); Sodium, Blood 143 mmol/L (136-145)
[2022-08-19 04:18] LABS: Hematocrit 30.5 % (33.0-51.0); Hemoglobin 9.7 g/dL (11.5-16.0); Mean Corpuscular HGB 27.3 pg (26.0-34.0); Mean Corpuscular HGB Conc 31.8 g/dL (31.5-36.5); Mean Corpuscular Volume 86 fL (80-100); Mean Platelet Volume 10.5 fL (9.1-12.4); Platelet Count 270 K/mm3 (150-400); RDW Coefficient Variation 14.6 % (11.7-14.2); RDW Standard Deviation 46.5 fL (35.1-46.3); Red Blood Cell Count 3.55 M/mm3 (3.80-5.20); White Blood Cell Count 7.77 K/mm3 (4.00-11.30)
[2022-08-19 05:13] LABS: Albumin, Blood 2.5 g/dL (3.4-5.0); Albumin/Globulin Ratio 0.6 (0.8-1.8); Bilirubin, Total 0.3 mg/dL (0.1-1.0); Bun/Creatinine Ratio 12.5 (12.0-20.0); Calcium, Blood 8.5 mg/dL (8.5-10.1); Creatinine, Blood 0.64 mg/dL (0.40-1.00); Globulin, Blood 4.1 g/dL (2.2-4.0); Potassium, Blood 3.8 mmol/L (3.5-5.5); Total Protein, Blood 6.6 g/dL (6.4-8.2)
[2022-08-20 04:58] LABS: Hematocrit 32.5 % (33.0-51.0); Hemoglobin 10.5 g/dL (11.5-16.0); Mean Corpuscular HGB 27.9 pg (26.0-34.0); Mean Corpuscular HGB Conc 32.3 g/dL (31.5-36.5); Mean Corpuscular Volume 86 fL (80-100); Mean Platelet Volume 9.9 fL (9.1-12.4); Platelet Count 289 K/mm3 (150-400); RDW Coefficient Variation 14.7 % (11.7-14.2); RDW Standard Deviation 46.5 fL (35.1-46.3); Red Blood Cell Count 3.77 M/mm3 (3.80-5.20); White Blood Cell Count 4.72 K/mm3 (4.00-11.30)
[2022-08-20 06:11] LABS: Albumin, Blood 2.6 g/dL (3.4-5.0); Albumin/Globulin Ratio 0.7 (0.8-1.8); Bilirubin, Total 0.3 mg/dL (0.1-1.0); Bun/Creatinine Ratio 8.7 (12.0-20.0); Calcium, Blood 8.8 mg/dL (8.5-10.1); Creatinine, Blood 0.69 mg/dL (0.40-1.00); Globulin, Blood 3.9 g/dL (2.2-4.0); Potassium, Blood 3.8 mmol/L (3.5-5.5); Total Protein, Blood 6.5 g/dL (6.4-8.2)
[2022-08-20] MEDS ORDERED: AMOCLA875 PO (11:00)
[2022-08-20] MEDS ORDERED: B-12500 MC2 PO (11:01)
== END 2022-08-20 14:10 | disposition home or self-care (01) | DRG 392 ==
LOC: ER 09:53 → SURS 14:31
PROVIDERS: Emergency Medicine; Family Medicine; Internal Medicine; ADMIT Internal Medicine
DX: K57.20 Diverticulitis of large intestine with perforation and abscess without bleeding (principal); E87.6 Hypokalemia; F03.90 Unspecified dementia, unspecified severity, without behavioral disturbance, psychotic disturbance, mood disturbance, and anxiety; E03.9 Hypothyroidism, unspecified; D64.9 Anemia, unspecified; Z85.3 Personal history of malignant neoplasm of breast; Z87.891 Personal history of nicotine dependence; Z90.49 Acquired absence of other specified parts of digestive tract; Z90.10 Acquired absence of unspecified breast and nipple; Z95.2 Presence of prosthetic heart valve; Z98.890 Other specified postprocedural states; Z79.899 Other long term (current) drug therapy; Z79.01 Long term (current) use of anticoagulants; Z79.2 Long term (current) use of antibiotics; Z88.8 Allergy status to other drugs, medicaments and biological substances; Z88.1 Allergy status to other antibiotic agents; Z88.2 Allergy status to sulfonamides; Z91.048 Other nonmedicinal substance allergy status
CPT/HCPCS: 36415; 51701; 74177; 80048; 80053; 80069; 82607; 82728; 82746; 82803; 83540; 83550; 83605; 84443; 84484; 85025; 85027; 87040; 93005; 93010; 96361; 96365-59; 97129; 97165; 99285-25; A9270; J0295; J1885; J2543; J3480; J7030; J7050; J7120; Q9967

== ENCOUNTER 2022-10-13 08:27 | Inpatient (IN) | payer OTHER ==
[~2022-10-13] VITALS: Ht 162.6 cm; Wt 65.8 kg
[~2022-10-13 08:27] MED LIST changes: +B-12500 MC2 PO
[2022-10-13 10:00] LABS: BASOPHILS ABSOLUTE AUTO 0.03 K/mm3 (0.00-0.23); BASOPHILS PERCENT AUTO 0 % (0-2); EOSINOPHILS ABSOLUTE AUTO 0.28 K/mm3 (0.00-0.68); EOSINOPHILS PERCENT AUTO 4 % (0-6); Hematocrit 37.5 % (33.0-51.0); IMMATURE GRAN ABSOLUTE AUTO 0.02 K/mm3 (0.00-0.10); IMMATURE GRAN PERCENT AUTO 0 % (0-1); LYMPHOCYTES ABSOLUTE AUTO 2.06 K/mm3 (0.84-5.20); LYMPHOCYTES PERCENT AUTO 25 % (21-46); MONOCYTES ABSOLUTE AUTO 0.75 K/mm3 (0.16-1.47); MONOCYTES PERCENT AUTO 9 % (4-13); Mean Corpuscular HGB 28.4 pg (26.0-34.0); Mean Corpuscular Volume 89 fL (80-100); Mean Platelet Volume 10.1 fL (9.1-12.4); NEUTROPHILS ABSOLUTE AUTO 4.97 K/mm3 (1.96-9.15); NEUTROPHILS PERCENT AUTO 61 % (41-73); Platelet Count 248 K/mm3 (150-400); RDW Coefficient Variation 15.1 % (11.7-14.2); RDW Standard Deviation 49.4 fL (35.1-46.3); Red Blood Cell Count 4.22 M/mm3 (3.80-5.20); White Blood Cell Count 8.11 K/mm3 (4.00-11.30)
[2022-10-13 10:08] LABS: Source, Urine Fem Cath
[2022-10-13 10:17] LABS: Appearance, Urine Clear (Clear); Bilirubin, Urine Neg (Neg); Blood, Urine Neg (Neg); Glucose Qualitative, Urine Neg (Neg); Ketones, Urine Neg (Neg); Leukocyte Esterase, Urine Neg (Neg); Nitrite, Urine Neg (Neg); Protein, Urine Neg (Neg); Specific Gravity, Urine 1.015 (1.003-1.022); Urobilinogen, Urine NORM (Normal)
[2022-10-13 10:18] LABS: Color, Urine Pale Yellow (P-Yellow)
[2022-10-13 10:18] LABS: Albumin, Blood 3.3 g/dL (3.4-5.0); Albumin/Globulin Ratio 0.8 (0.8-1.8); Bilirubin, Total 0.6 mg/dL (0.1-1.0); Bun/Creatinine Ratio 8.4 (12.0-20.0); Calcium, Blood 8.7 mg/dL (8.5-10.1); Creatinine, Blood 0.71 mg/dL (0.40-1.00); Globulin, Blood 3.9 g/dL (2.2-4.0); Potassium, Blood 3.7 mmol/L (3.5-5.5); Total Protein, Blood 7.2 g/dL (6.4-8.2)
[2022-10-13 16:20] VITALS: BP 145/70
--- NOTE | 2022-10-13 18:04 | NUR ---
SHIFT SUMMARY PT ADMITTED FROM ED THIS AFTERNOON RELTED TO DIVERTICULAR ABSCESS. PT REPORTS MILD ABD PAIN IN LLQ UPON PALPATION. PT A&O 3-4, PT ASKS FREQUEST REPEATING QUESTIONS, POOR HISTORIAN, EASILY REDIRECTABLE. VS WNL, O2>95% ON RA. PT SKIN DUSKY/BLUE/JOSE RELATED TO HOME SILVER MED. GRIJALVA IN PLACE, NO S/S OF INFECTION. AWAITING SURGERY CONSULT. PT RESTING COMFORTABLY IN BED, CALL LIGHT WITHIN REACH, WILL REPORT TO NOC NURSE.
[2022-10-13 19:16] VITALS: BP 131/54
[2022-10-14 04:23] VITALS: BP 111/58
[2022-10-14 05:16] LABS: BASOPHILS ABSOLUTE AUTO 0.06 K/mm3 (0.00-0.23); BASOPHILS PERCENT AUTO 1 % (0-2); EOSINOPHILS ABSOLUTE AUTO 0.32 K/mm3 (0.00-0.68); EOSINOPHILS PERCENT AUTO 6 % (0-6); Hematocrit 35.6 % (33.0-51.0); Hemoglobin 11.2 g/dL (11.5-16.0); IMMATURE GRAN ABSOLUTE AUTO 0.01 K/mm3 (0.00-0.10); IMMATURE GRAN PERCENT AUTO 0 % (0-1); LYMPHOCYTES ABSOLUTE AUTO 1.85 K/mm3 (0.84-5.20); LYMPHOCYTES PERCENT AUTO 32 % (21-46); MONOCYTES ABSOLUTE AUTO 0.69 K/mm3 (0.16-1.47); MONOCYTES PERCENT AUTO 12 % (4-13); Mean Corpuscular HGB 28.4 pg (26.0-34.0); Mean Corpuscular HGB Conc 31.5 g/dL (31.5-36.5); Mean Corpuscular Volume 90 fL (80-100); Mean Platelet Volume 10.4 fL (9.1-12.4); NEUTROPHILS ABSOLUTE AUTO 2.85 K/mm3 (1.96-9.15); NEUTROPHILS PERCENT AUTO 49 % (41-73); Platelet Count 219 K/mm3 (150-400); RDW Coefficient Variation 14.7 % (11.7-14.2); RDW Standard Deviation 49.4 fL (35.1-46.3); Red Blood Cell Count 3.95 M/mm3 (3.80-5.20); White Blood Cell Count 5.78 K/mm3 (4.00-11.30)
--- NOTE | 2022-10-14 05:33 | NUR ---
SHIFT SUMMARY PT ALERT AND ABLE TO ANSWER ORIENTATION QUESTIONS, BUT CAN SOMETIMES FIXATE ON THOUGHTS. REORIENTABLE THOUGH. NO ACUTE CHANGES. PT DID NOT REQUIRE PAIN COVERAGE THIS SHIFT. GRIJALVA PATIENT AND DRAINING TO GRAVITY, HAD ONE LIQUIDY BM. 1-ASSIST WITH FWW/GB. CALLS APPROPRIATELY, CALL LIGHT WITHIN REACH.
[2022-10-14 05:58] LABS: Magnesium, Blood 2.2 mg/dL (1.6-2.4); Prealbumin, Blood 13.9 mg/dL (20.0-40.0)
[2022-10-14 05:59] LABS: Albumin, Blood 3.1 g/dL (3.4-5.0); Anion Gap 7 mmol/L (6-16); Blood Urea Nitrogen 7 mg/dL (8-24); Bun/Creatinine Ratio 8.8 (12.0-20.0); CO2, Blood 24 mmol/L (21-32); Calcium, Blood 8.6 mg/dL (8.5-10.1); Chloride, Blood 111 mmol/L (98-108); Glomerular Filtration Rate 75 (60-); Glucose, Blood 87 mg/dL (70-99); Phosphorus, Blood 4.4 mg/dL (2.5-4.9); Potassium, Blood 3.6 mmol/L (3.5-5.5); Sodium, Blood 142 mmol/L (136-145)
[2022-10-14 08:14] VITALS: BP 148/64
--- NOTE | 2022-10-14 11:11 | NUR ---
"Spiritual Care Visit | Pt. Request Pt. is resting in bed but responds when I enter the room. Pt. is pleasant but unsettled by the continual pain from her abdomine. Listen with empathy and a calming presence. Facilitate a life review and establish rapport. Pt. displays evidence of awareness and engagement. Prayed with Pt. Pt. verbalized gratitude for the spiritual care visit."
--- NOTE | 2022-10-14 13:32 | NUR ---
SUSTAINABILITY PROJECT MANAGER CONSULT SPOKE WITH SUSTAINABILITY PROJECT MANAGER ABOUT CONSULTING WITH THIS PATIENT. PER THEIR REPORT THEY WILL ADD HER ON TO THIER SCHEDULE FOR TOMORROW PRIOR TO DISCHARGE.
[2022-10-14 15:26] VITALS: BP 147/76
[2022-10-14 15:28] VITALS: BP 133/59
--- NOTE | 2022-10-14 16:43 | NUR ---
SHIFT SUMMARY PT ADMITTED FOR DIVERTICULAR ABSCESS. DR. MADDOX WANTS PT TO FOLLOW-UP OUTPATIENT FOR SURGERY AFTER NUTRITION IMPROVES, INCREASE PROTEIN. DEITICIAN CONSULT, ANTICIPATED TOMORROW. A&O X4, ANSWERES QUESTIONS APPROPRIATELY, EASILY REDIRECTABLE. VS WNL, O2 SAT >95% RA. TOLERALTES ORAL FLUIDS. DIET ADVANCED TO MECHANIAL SOFT. GRIJALVA REMOVED, PT AMBULATES WITH FRONT WHEELED WALKER. NO ACUTE CHANGES THIS SHIFT. PT READING BOOK IN BED, CALL LIGHT WITHIN REACH. WILL REPORT TO NOS NURSE.
[2022-10-14 19:36] VITALS: BP 107/92
[2022-10-15 03:20] VITALS: BP 139/59
--- NOTE | 2022-10-15 06:06 | NUR ---
SHIFT SUMMARY: PT SLEPT COMFORTABLY T/O THE NIGHT. C/O PAIN ONCE DURING THE SHIFT THAT WAS MANAGED WITH IV MEDICATION PER EMAR ORDERS. PT AMBULATING TO USE BSC T/O THE NIGHT. REPORTS HAVING MULTIPLE LOOSE BM. PT TOLERATING DIET. EATING, DRINKING, VOIDING. PT REMAINS SLIGHTLY WEAK WITH AMBULATION, ENCOURAGED CALL LIGHT USE AND USE OF WALKER TO ASSIST. PT RESTING AT THIS TIME WITH CALL LIGHT IN REACH AND BED IN LOWEST POSITION. WILL GIVE REPORT TO DAY TIME RN.
[2022-10-15 07:20] VITALS: BP 167/78
[2022-10-15] MEDS ORDERED: AMOCLA875 PO (14:09)
[2022-10-15] MEDS ORDERED: OXYC5 PO (14:10)
--- NOTE | 2022-10-15 15:20 | NUR ---
DISCHARGE NOTE: PATIENTS MIRROR MAKER TAVIA WAS EDUCATED ON DISCHARGE INSTRUCTIONS DUE TO PATIENTS HX OF DEMENTIA. TAVIA VERBALIZED UNDERSTANDING OF DISCHARGE INSTRUCTIONS AND HAD NO FURTHER QUESTIONS AT THIS TIME. HARD PERSCRIPTION WAS PLACED IN INSTRUCTIONS FOLDER WHICH WAS GIVEN TO MIRROR MAKER TAVIA. IV WAS TAKEN OUT AND WNL. PAIN IS MANAGED WITH PO PAIN MEDICATION. SHE IS TOLERATING PO INTAKE AND IS VOIDING/PASSING GAS. SHE IS A SBA WITH FWW AND GAIT BELT WITH AMBULATION. PATIENT AND TAVIA WERE ENCOURAGED TO INCREASE PROTEIN INTAKE WHICH BOTH OF THEM VERBALIZED UNDERSTANDING. PATIENT IS DRESSED AND HAS PERSONAL ITEMS IN THE ROOM GATHERED. SHE IS BEING WHEELCHAIRED OUT TO MIRROR MAKER TAVIA'S CAR TO TAKE HER HOME.
== END 2022-10-15 15:24 | disposition home health service (06) | DRG 392 ==
LOC: ER 08:27 → SURS 11:30
PROVIDERS: Emergency Medicine; ADMIT Internal Medicine
DX: K57.20 Diverticulitis of large intestine with perforation and abscess without bleeding (principal); E03.9 Hypothyroidism, unspecified; G30.9 Alzheimer's disease, unspecified; F02.80 Dementia in other diseases classified elsewhere, unspecified severity, without behavioral disturbance, psychotic disturbance, mood disturbance, and anxiety; Z88.2 Allergy status to sulfonamides; Z88.8 Allergy status to other drugs, medicaments and biological substances; Z91.013 Allergy to seafood; Z88.1 Allergy status to other antibiotic agents; Z90.10 Acquired absence of unspecified breast and nipple; Z90.49 Acquired absence of other specified parts of digestive tract; Z95.2 Presence of prosthetic heart valve; Z98.890 Other specified postprocedural states; Z87.891 Personal history of nicotine dependence; Z79.01 Long term (current) use of anticoagulants; Z85.3 Personal history of malignant neoplasm of breast; Z91.048 Other nonmedicinal substance allergy status; Z79.2 Long term (current) use of antibiotics; Z79.899 Other long term (current) drug therapy
CPT/HCPCS: 36415; 51702; 71045; 74177; 80053; 80069; 81003; 82947; 83605; 83690; 83735; 84134; 84145; 85025; 86140; 93005; 93010; 96365-59; 97116; 97161; 97530; 99285-25; A9270; J1170; J2543; J7030; Q9967

== ENCOUNTER 2022-10-21 16:09 | Emergency (ER) | payer OTHER ==
[~2022-10-21] VITALS: Ht 170.2 cm; Wt 72.6 kg
[~2022-10-21 16:09] MED LIST changes: +OXYC5 PO
[2022-10-21 16:45] LABS: BASOPHILS ABSOLUTE AUTO 0.11 K/mm3 (0.00-0.23); BASOPHILS PERCENT AUTO 2 % (0-2); EOSINOPHILS ABSOLUTE AUTO 0.57 K/mm3 (0.00-0.68); EOSINOPHILS PERCENT AUTO 8 % (0-6); Hematocrit 39.1 % (33.0-51.0); Hemoglobin 12.4 g/dL (11.5-16.0); IMMATURE GRAN ABSOLUTE AUTO 0.02 K/mm3 (0.00-0.10); IMMATURE GRAN PERCENT AUTO 0 % (0-1); LYMPHOCYTES ABSOLUTE AUTO 2.06 K/mm3 (0.84-5.20); LYMPHOCYTES PERCENT AUTO 29 % (21-46); MONOCYTES ABSOLUTE AUTO 0.61 K/mm3 (0.16-1.47); MONOCYTES PERCENT AUTO 9 % (4-13); Mean Corpuscular HGB 27.7 pg (26.0-34.0); Mean Corpuscular HGB Conc 31.7 g/dL (31.5-36.5); Mean Corpuscular Volume 88 fL (80-100); Mean Platelet Volume 9.9 fL (9.1-12.4); NEUTROPHILS ABSOLUTE AUTO 3.83 K/mm3 (1.96-9.15); NEUTROPHILS PERCENT AUTO 53 % (41-73); Platelet Count 337 K/mm3 (150-400); RDW Coefficient Variation 14.7 % (11.7-14.2); RDW Standard Deviation 47.5 fL (35.1-46.3); Red Blood Cell Count 4.47 M/mm3 (3.80-5.20)
[2022-10-21 17:00] LABS: C-REACTIVE PROTEIN, EXT RANGE 0.619 mg/dL (0.000-0.300)
[2022-10-21 17:05] LABS: Albumin, Blood 3.6 g/dL (3.4-5.0); Albumin/Globulin Ratio 0.8 (0.8-1.8); Bilirubin, Total 0.2 mg/dL (0.1-1.0); Bun/Creatinine Ratio 23.7 (12.0-20.0); Calcium, Blood 9.2 mg/dL (8.5-10.1); Creatinine, Blood 0.59 mg/dL (0.40-1.00); Globulin, Blood 4.4 g/dL (2.2-4.0); Potassium, Blood 4.4 mmol/L (3.5-5.5)
[2022-10-21 20:35] VITALS: BP 161/82
== END 2022-10-21 20:35 | disposition home or self-care (01) ==
LOC: ER 16:09
PROVIDERS: Physician Assistant
DX: R53.1 Weakness (principal); K57.32 Diverticulitis of large intestine without perforation or abscess without bleeding; K65.1 Peritoneal abscess; E03.9 Hypothyroidism, unspecified; Z88.2 Allergy status to sulfonamides; Z88.1 Allergy status to other antibiotic agents; Z91.09 Other allergy status, other than to drugs and biological substances; Z91.013 Allergy to seafood; Z79.890 Hormone replacement therapy; Z79.82 Long term (current) use of aspirin; Z79.899 Other long term (current) drug therapy; Z95.2 Presence of prosthetic heart valve; Z96.642 Presence of left artificial hip joint
CPT/HCPCS: 80053; 85025; 86140; J7030

== ENCOUNTER 2022-10-27 10:51 | Inpatient (IN) | payer OTHER ==
[~2022-10-27] VITALS: Ht 162.6 cm; Wt 67.0 kg
[2022-10-27 11:27] LABS: Source, Urine Clean Catch
[2022-10-27 11:30] LABS: BASOPHILS ABSOLUTE AUTO 0.08 K/mm3 (0.00-0.23); BASOPHILS PERCENT AUTO 1 % (0-2); EOSINOPHILS ABSOLUTE AUTO 0.17 K/mm3 (0.00-0.68); EOSINOPHILS PERCENT AUTO 1 % (0-6); Hematocrit 39.6 % (33.0-51.0); Hemoglobin 12.5 g/dL (11.5-16.0); IMMATURE GRAN ABSOLUTE AUTO 0.03 K/mm3 (0.00-0.10); IMMATURE GRAN PERCENT AUTO 0 % (0-1); LYMPHOCYTES ABSOLUTE AUTO 2.54 K/mm3 (0.84-5.20); LYMPHOCYTES PERCENT AUTO 21 % (21-46); MONOCYTES ABSOLUTE AUTO 1.04 K/mm3 (0.16-1.47); MONOCYTES PERCENT AUTO 9 % (4-13); Mean Corpuscular HGB 27.7 pg (26.0-34.0); Mean Corpuscular HGB Conc 31.6 g/dL (31.5-36.5); Mean Corpuscular Volume 88 fL (80-100); Mean Platelet Volume 9.7 fL (9.1-12.4); NEUTROPHILS ABSOLUTE AUTO 8.02 K/mm3 (1.96-9.15); NEUTROPHILS PERCENT AUTO 67 % (41-73); Platelet Count 320 K/mm3 (150-400); RDW Coefficient Variation 14.6 % (11.7-14.2); RDW Standard Deviation 47.5 fL (35.1-46.3); Red Blood Cell Count 4.51 M/mm3 (3.80-5.20); White Blood Cell Count 11.88 K/mm3 (4.00-11.30)
[2022-10-27 11:31] LABS: Appearance, Urine Clear (Clear); Bilirubin, Urine Neg (Neg); Blood, Urine Neg (Neg); Glucose Qualitative, Urine Neg (Neg); Ketones, Urine Neg (Neg); Leukocyte Esterase, Urine Neg (Neg); Nitrite, Urine Neg (Neg); Protein, Urine Neg (Neg); Urobilinogen, Urine NORM (Normal)
[2022-10-27 11:32] LABS: Color, Urine Pale Yellow (P-Yellow)
[2022-10-27 11:51] LABS: Albumin, Blood 3.6 g/dL (3.4-5.0); Albumin/Globulin Ratio 0.8 (0.8-1.8); Bilirubin, Total 0.3 mg/dL (0.1-1.0); Bun/Creatinine Ratio 17.3 (12.0-20.0); Calcium, Blood 9.3 mg/dL (8.5-10.1); Creatinine, Blood 0.69 mg/dL (0.40-1.00); Globulin, Blood 4.4 g/dL (2.2-4.0)
[2022-10-27 17:27] VITALS: BP 136/66
--- NOTE | 2022-10-27 18:10 | NUR ---
NURSE NOTE PATIENT ARRIVED FROM ED AT 1710. PATIENT ORIENTED TO ROOM. ASSESSMENT DONE. ADMIT COMPLETED. REVIEWED STUDENT NURSE ADMIT
--- NOTE | 2022-10-27 18:34 | NUR ---
ADMISSION FROM ER: PT ARRIVES VIA GURNEY TO MEDICAL FLOOR WITH ER STAFF AT APPROX 1715.
[2022-10-27 20:17] VITALS: BP 137/96
[2022-10-28 04:07] VITALS: BP 140/73
[2022-10-28 05:15] LABS: BASOPHILS ABSOLUTE AUTO 0.08 K/mm3 (0.00-0.23); BASOPHILS PERCENT AUTO 1 % (0-2); EOSINOPHILS ABSOLUTE AUTO 0.25 K/mm3 (0.00-0.68); EOSINOPHILS PERCENT AUTO 3 % (0-6); Hematocrit 38.5 % (33.0-51.0); Hemoglobin 12.1 g/dL (11.5-16.0); IMMATURE GRAN ABSOLUTE AUTO 0.03 K/mm3 (0.00-0.10); IMMATURE GRAN PERCENT AUTO 0 % (0-1); LYMPHOCYTES ABSOLUTE AUTO 1.96 K/mm3 (0.84-5.20); LYMPHOCYTES PERCENT AUTO 19 % (21-46); MONOCYTES ABSOLUTE AUTO 0.92 K/mm3 (0.16-1.47); MONOCYTES PERCENT AUTO 9 % (4-13); Mean Corpuscular HGB 27.8 pg (26.0-34.0); Mean Corpuscular HGB Conc 31.4 g/dL (31.5-36.5); Mean Corpuscular Volume 88 fL (80-100); Mean Platelet Volume 10.2 fL (9.1-12.4); NEUTROPHILS ABSOLUTE AUTO 6.93 K/mm3 (1.96-9.15); NEUTROPHILS PERCENT AUTO 68 % (41-73); Platelet Count 305 K/mm3 (150-400); RDW Coefficient Variation 14.6 % (11.7-14.2); RDW Standard Deviation 47.2 fL (35.1-46.3); Red Blood Cell Count 4.36 M/mm3 (3.80-5.20); White Blood Cell Count 10.17 K/mm3 (4.00-11.30)
--- NOTE | 2022-10-28 05:46 | NUR ---
PATIENT IS ABLE TO ANSWER ORIENTATION QUESTIONS, WITH SOME SITUATIONAL CONFUSION. VERY PLEASANT AND COOPERATIVE. FULL LIQUID DIET, NO N/V THIS SHIFT. ABD PAIN TREATED PER MAR ONCE, MEDIUM SIZE BM, IV ABT'S INFUSING. SOME HTN, BUT OTHERWISE VSS. 1X ASSIST WITH FWW. WILL CONT TO MONITOR.
[2022-10-28 05:49] LABS: Albumin, Blood 3.6 g/dL (3.4-5.0); Albumin/Globulin Ratio 0.9 (0.8-1.8); Bilirubin, Total 0.8 mg/dL (0.1-1.0); Bun/Creatinine Ratio 12.1 (12.0-20.0); Calcium, Blood 8.8 mg/dL (8.5-10.1); Creatinine, Blood 0.74 mg/dL (0.40-1.00); Globulin, Blood 4.1 g/dL (2.2-4.0); Potassium, Blood 3.9 mmol/L (3.5-5.5); Prealbumin, Blood 19.5 mg/dL (20.0-40.0); Total Protein, Blood 7.7 g/dL (6.4-8.2)
[2022-10-28 08:27] VITALS: BP 135/69
[2022-10-28] MEDS ORDERED: VISBIOME 112.51 EACH PO (11:15)
[2022-10-28 15:24] VITALS: BP 145/76
--- NOTE | 2022-10-28 17:05 | NUR ---
EVENING NOTE PT RESTING QUIETLY. ABD LARGE, ROUND TENDER. DR MADDOX HERE TO SEEPT. PLAN TO GO FOR SURGERY TOMORROW AT 0900. NPO AFTER 0400 EXCEPT BOWEL PREP. VSS. PT UP IN ROOM. USING CALL LIGHT. VOIDING. SKIN BLUE TINGED-CHRONIC. DENIED NAUSEA OR BLOATING. CONTINUE POC.
[2022-10-28 19:22] VITALS: BP 131/74
[2022-10-29] VITALS (17 sets, daily range): BP systolic 119–145; BP diastolic 51–85
--- NOTE | 2022-10-29 04:44 | NUR ---
SHIFT SUMMARY PT ADMIT FOR COLITIS. SKIN HAS BLUE TONES DT COLLOIDAL SILVER USE AT HOME. PT HAS POWERGLIDE IN PLACE ON RIGHT UPPER ARM. NPO @0400 FOR 09 COLECTOMY. BOWEL PREP STARTED @1999. SECOND PART OF BOWEL PREP STARTED @030. PT IS STANDBY ASSIST WITH FWW. PLEASANT AND COOPERATIVE.
--- NOTE | 2022-10-29 05:46 | NUR ---
CTA NOTE I HAVE READ THE CARDIOVASCULAR TECHNICIAN DOCUMENTATION AND I AGREE. SHIFT SUMMARY FOUND UNDER CARDIOVASCULAR TECHNICIAN NOTES
--- NOTE | 2022-10-29 06:42 | NUR ---
DAY SURGERY CALLED I WAS ORDERED TO GIVE ARICEPT EARLY PATIENT WILL BE GOING TO SURGERY WITHIN THE NEXT FEW HOURS.
--- NOTE | 2022-10-29 08:28 | NUR ---
PRE OP PT TRANSPORTED TO DAY SURGERY IN BED. PT A/OX3. STOOL CLEAR AND LIGHT BROWN. PT VERY TIRED. DENIED PAIN OR DISCOMFORT. CONTINUE POC.
--- NOTE | 2022-10-29 09:15 | NUR ---
PT BROUGHT TO [facility] VIA BED. PT HAS A "BLUISH" APPEARANCE TO HER FACE R/T SILVER COLLOID INGESTION. SA02 =100 % ON RA. PT IS ALERT AND ORIENTED TO PLACE AND HERSELF. S/P COLON PREP WHICH IS A WATERY MACK COLOR, DR. MADDOX AWARE AND PREP IS SUFFICIENT. History, Chart, Medications and Allergies reviewed before start of procedure.Patient confirms NPO status and agrees with scheduled surgery. Pre-Op teaching done. Pt verbalizes understanding.
--- NOTE | 2022-10-29 12:03 | NUR ---
10/29/22 1203 Melany Subramanian 14FR GRIJALVA INSERTED IN OR BY Alex SUBRAMANIAN RN. URINE FLASH BACK NOTED. INFLATED BALLOON W 10CC STERILE H20
--- NOTE | 2022-10-29 16:08 | NUR ---
PT ARRIVED TO UNIT FROM PACU ARRIVED IN BED. PT DROWSY BUT ANSWERS QUESTIONS APPROPRIATELY. ORIENTED TO USE OF CALL LIGHT AND PLACED BED ALARM ON FOR SAFETY. LAP INCISIONS TO ABD X4 W/SMALL TRANSVERSE INCISIONS TO LOWER L ABD. ALL CLOSED W/DERMABOND; CDI. LCA W/DIM BASES, RESPIRATIONS E/U ON 2L NC. HR IRREGULAR W/MURMUR. BT HYPO X4. ABD MOD DISTENDED BUT SOFT TO TENDER PALPATION.
[2022-10-30 05:07] LABS: BASOPHILS ABSOLUTE AUTO 0.05 K/mm3 (0.00-0.23); BASOPHILS PERCENT AUTO 0 % (0-2); EOSINOPHILS PERCENT AUTO 0 % (0-6); Hematocrit 30.5 % (33.0-51.0); Hemoglobin 10.1 g/dL (11.5-16.0); IMMATURE GRAN ABSOLUTE AUTO 0.06 K/mm3 (0.00-0.10); IMMATURE GRAN PERCENT AUTO 0 % (0-1); LYMPHOCYTES ABSOLUTE AUTO 2.12 K/mm3 (0.84-5.20); LYMPHOCYTES PERCENT AUTO 14 % (21-46); MONOCYTES ABSOLUTE AUTO 1.26 K/mm3 (0.16-1.47); MONOCYTES PERCENT AUTO 8 % (4-13); Mean Corpuscular HGB 28.7 pg (26.0-34.0); Mean Corpuscular HGB Conc 33.1 g/dL (31.5-36.5); Mean Corpuscular Volume 87 fL (80-100); Mean Platelet Volume 10.5 fL (9.1-12.4); NEUTROPHILS ABSOLUTE AUTO 11.44 K/mm3 (1.96-9.15); NEUTROPHILS PERCENT AUTO 77 % (41-73); Platelet Count 265 K/mm3 (150-400); RDW Coefficient Variation 14.6 % (11.7-14.2); RDW Standard Deviation 46.8 fL (35.1-46.3); Red Blood Cell Count 3.52 M/mm3 (3.80-5.20); White Blood Cell Count 14.93 K/mm3 (4.00-11.30)
[2022-10-30 05:23] LABS: Bun/Creatinine Ratio 15.2 (12.0-20.0); Calcium, Blood 8.3 mg/dL (8.5-10.1); Creatinine, Blood 0.66 mg/dL (0.40-1.00); Potassium, Blood 3.9 mmol/L (3.5-5.5)
[2022-10-30 05:43] VITALS: BP 109/59
--- NOTE | 2022-10-30 06:17 | NUR ---
SHIFT SUMMARY POD#1 COLECTOMY PT REMAINS A&O X3, SHE HAD PERIODS OF CONFUSION THROUGH THE NIGHT BUT APPEARS TO BE CLEAR THIS AM, VSS, RA, TOLERATING CLEAR FLUIDS, HAS NOT PASSED FLATUS, ABD REMAINS DISTENDED, LAP/INCISION SITES DRY/INTACT, BRUISING NOTED AROUND SITES THIS AM, PAIN MNGD PER EMAR, ZAMZAM URINE NOTED IN GRIJALVA, PT IS UP IN A CHAIR THIS AM, SBA, SCD'S ON, CALL LIGHT IN REACH. WCTM & REPORT TO DAY RN
[2022-10-30 07:18] VITALS: BP 100/56
--- NOTE | 2022-10-30 08:49 | NUR ---
WORKING WITH OT.
--- NOTE | 2022-10-30 13:10 | NUR ---
REPORTS PASSING FLATUS, UP TO CHAIR, TOLERATING CLEAR LIQUIDS WELL, DR. MADDOX HERE TO SEE PT.
--- NOTE | 2022-10-30 13:18 | NUR ---
Spiritual Care Visit. Pt. is awake and sitting up in a recliner when she welcomes my visit. Pt. is pleasant, but is unsettled by her abdominal discomfort. Listen with empathy and a calming presence. Pt. displays evidence of engagement and awareness. facilitate a life review until a BM urge required me to pursue nurse assistance. Notified Surgical charge nurse. When I later returned, continued to establish rapport. Pt. displayed evidence of trust and engagement. Prayed with Pt. Pt. verbalized gratitude for the spiritual care visit. Will remain available to the Pt.
[2022-10-30 15:57] VITALS: BP 130/53
--- NOTE | 2022-10-30 17:24 | NUR ---
SUMMARY OOB TO CHAIR MOST OF THE DAY, RUDI COX'Halima THIS AM, VOIDING WITHOUT DIFFICULTY, REPORTS HAVING MINIMAL PAIN, WORKED WITH PT/OT, TOLERATING CLEAR LIQUIDS, PASSING FLATUS, REGULAR DINNER ORDERED, NO ACUTE CHANGES THIS SHIF.
[2022-10-30 19:03] VITALS: BP 121/62
--- NOTE | 2022-10-30 22:37 | NUR ---
UPDATE PATIENT HAVING IMPULSIVE BEHAVIOR, SETTING BED ALARM OFF AND THEN TURNING THE BED ALARM OFF HERSELF. VISUAL PRINTED CIRCUIT BOARDS SOLDER LEVELER MONITORING SYSTEM HAS BE INITIATED. PATIENT IS AWARE AND DOES CONSENT TO MONITOR SYSTEM. PATIENT CONSENTS TO CALL BEFORE GETTING OUT OF BED, CALL LIGHT IS IN REACH. BED ALARM IS ON.
[2022-10-31 04:26] LABS: BASOPHILS ABSOLUTE AUTO 0.08 K/mm3 (0.00-0.23); BASOPHILS PERCENT AUTO 1 % (0-2); EOSINOPHILS ABSOLUTE AUTO 0.24 K/mm3 (0.00-0.68); EOSINOPHILS PERCENT AUTO 3 % (0-6); Hematocrit 29.6 % (33.0-51.0); Hemoglobin 9.3 g/dL (11.5-16.0); IMMATURE GRAN ABSOLUTE AUTO 0.02 K/mm3 (0.00-0.10); IMMATURE GRAN PERCENT AUTO 0 % (0-1); LYMPHOCYTES PERCENT AUTO 24 % (21-46); MONOCYTES ABSOLUTE AUTO 0.94 K/mm3 (0.16-1.47); MONOCYTES PERCENT AUTO 10 % (4-13); Mean Corpuscular HGB 27.6 pg (26.0-34.0); Mean Corpuscular HGB Conc 31.4 g/dL (31.5-36.5); Mean Corpuscular Volume 88 fL (80-100); Mean Platelet Volume 10.5 fL (9.1-12.4); NEUTROPHILS ABSOLUTE AUTO 5.71 K/mm3 (1.96-9.15); NEUTROPHILS PERCENT AUTO 62 % (41-73); Platelet Count 237 K/mm3 (150-400); RDW Coefficient Variation 14.6 % (11.7-14.2); RDW Standard Deviation 46.7 fL (35.1-46.3); Red Blood Cell Count 3.37 M/mm3 (3.80-5.20); White Blood Cell Count 9.19 K/mm3 (4.00-11.30)
--- NOTE | 2022-10-31 04:45 | NUR ---
SHIFT SUMMARY NO ACUTE EVENTS SINCE LAST NOTE. CAMERA MONITOR IN PLACE, PATIENT IS USING CALL LIGHT APPROPRIATELY. SBA TO THE BATHROOM, MEDICATED FOR PAIN PER EMAR. PATIENT ABLE TO REST T/O NIGHT. REPORTS PASSING GAS. LAP SITES C/D/I. ABD BINDER IN PLACE FOR COMFORT. CALL LIGHT IS IN REACH, BED ALARM ON. VSS, WILL REPORT TO DAY RN.
[2022-10-31 04:52] LABS: Albumin, Blood 2.7 g/dL (3.4-5.0); Anion Gap 5 mmol/L (6-16); Blood Urea Nitrogen 11 mg/dL (8-24); Bun/Creatinine Ratio 17.2 (12.0-20.0); CO2, Blood 27 mmol/L (21-32); Calcium, Blood 8.2 mg/dL (8.5-10.1); Chloride, Blood 109 mmol/L (98-108); Creatinine, Blood 0.64 mg/dL (0.40-1.00); Glomerular Filtration Rate 90 (60-); Glucose, Blood 99 mg/dL (70-99); Phosphorus, Blood 2.3 mg/dL (2.5-4.9); Potassium, Blood 3.7 mmol/L (3.5-5.5); Sodium, Blood 141 mmol/L (136-145)
[2022-10-31 05:59] VITALS: BP 138/65
[2022-10-31 07:36] VITALS: BP 130/63
[2022-10-31 14:20] LABS: Hematocrit 33.1 % (33.0-51.0); Hemoglobin 10.4 g/dL (11.5-16.0)
[2022-10-31 15:42] VITALS: BP 135/62
--- NOTE | 2022-10-31 15:58 | NUR ---
SHIFT SUMMARY: POD 2 LAP COLECTOMY PATIENT IS A&OX3-CAN BE FORGETFUL AT TIMES BUT IS EASILY REORIENTED. PATIENT HAS 4 LAP SITES ON ABD THAT ARE C/D/I. SHE IS PASSING FLATUS AND IS VOIDING. DENIES NAUSEA OR VOMITING. SHE IS TOLERATING PO INTAKE WELL. PAIN IS MANAGED WITH PO OXY AND TYLENOL. PATIENT IS A SBA WITH FWW AND GAIT BELT. PATIENT ALSO HAS A TRANSVERSE INCISION ABOVE HER PUBIS FROM SURGERY THAT WAS SLIGHTLY OPEN SO A MEDIPORE DRESSING WAS PLACE THAT IS C/D/I WELL. PATIENT WAS SITTING UP IN THE RECLINER FOR MAJORITY OF THE SHIFT BUT IS NOW LAYING IN BED ASLEEP WITH EVEN/EQUAL RESP. AND CALL LIGHT IN REACH. THE PLAN IS FOR PATIENT TO DISCHARGE IF STILL APPROPRIATE TOMORROW TO HOME WITH HOME HEALTH.
[2022-10-31 20:35] VITALS: BP 154/72
[2022-11-01 04:46] VITALS: BP 144/74
--- NOTE | 2022-11-01 05:06 | NUR ---
SHIFT SUMMARY PT RESTED WELL THIS AM. AAOX4. DISCOMFORT CONTROLLED WITH OXYCODONE X1 THIS SHIFT WITH SCHEDULED TYLENOL. NO NAUSEA/EMESIS. ABD INCISIONS C/D/I WITH MEPILEX IN PLACE OVER LOWER TRANSVERSE ABD INCISION. PT UP TO RESTROOM SBA WITH FWW, LARGE AMOUNTS OF FLATUS + SMALL BM LAST NIGHT. TOLERATING PO INTAKE WELL. NO CHANGES OVER NIGHT. PT CURRENTLY RESTING IN BED WITH CALL LIGHT IN REACH.
[2022-11-01 08:25] VITALS: BP 149/68
[2022-11-01] MEDS ORDERED: MAGNESIUM OXID500 MG PO (12:43)
--- NOTE | 2022-11-01 13:15 | NUR ---
DISCHARGE PATIENT EATING, DRINKING, & VOIDING WELL. DENIES N/V. REPORTS BM & FLATUS. DENIES N/V. AMBULATING WELL SBA. DISCUSSED DISCHARGE INSTRUCTIONS, SENT WITH PATIEN. ESCORTED OUT VIA W/C.
== END 2022-11-01 13:10 | disposition home health service (06) | DRG 330 ==
LOC: ER 10:51 → MEDS 10:52 → ENPENDDIS 10-28 10:13 → MEDS 10-28 14:42 → SURS 10-29 13:20
PROVIDERS: Family Medicine; Physician Assistant; Surgery; ADMIT Internal Medicine
PROC: 8E0W4CZ Robotic Assisted Procedure of Trunk Region, Percutaneous Endoscopic Approach (ICD-10-PCS; 2022-10-29)
PROC: 0DBN4ZZ Excision of Sigmoid Colon, Percutaneous Endoscopic Approach (ICD-10-PCS; principal; 2022-10-29 09:00)
DX: K57.20 Diverticulitis of large intestine with perforation and abscess without bleeding (principal); A09 Infectious gastroenteritis and colitis, unspecified; K63.2 Fistula of intestine; E03.9 Hypothyroidism, unspecified; F03.90 Unspecified dementia, unspecified severity, without behavioral disturbance, psychotic disturbance, mood disturbance, and anxiety; R63.4 Abnormal weight loss; D63.8 Anemia in other chronic diseases classified elsewhere; E88.09 Other disorders of plasma-protein metabolism, not elsewhere classified; E83.39 Other disorders of phosphorus metabolism; K59.00 Constipation, unspecified; N73.9 Female pelvic inflammatory disease, unspecified; Z91.013 Allergy to seafood; Z79.01 Long term (current) use of anticoagulants; Z79.2 Long term (current) use of antibiotics; Z79.891 Long term (current) use of opiate analgesic; Z88.8 Allergy status to other drugs, medicaments and biological substances; Z88.2 Allergy status to sulfonamides; Z85.3 Personal history of malignant neoplasm of breast; Z95.2 Presence of prosthetic heart valve; Z96.642 Presence of left artificial hip joint; Z90.49 Acquired absence of other specified parts of digestive tract; Z90.10 Acquired absence of unspecified breast and nipple; Z68.25 Body mass index [BMI] 25.0-25.9, adult; Z88.1 Allergy status to other antibiotic agents; Z91.048 Other nonmedicinal substance allergy status; Z87.891 Personal history of nicotine dependence
CPT/HCPCS: 36415; 74177; 80048; 80053; 80069; 81003; 83605; 83690; 84134; 84145; 85014; 85018; 85025; 88307; 93005; 93010; 94760; 96365-59; 96366; 96372; 96375; 96376; 97110; 97162; 97165; 97530; 97535; 99285-25; A9270; G0378; J1100; J1644; J1650; J2370; J2405; J2543; J2704; J2795; J3010; J7120; Q9967

== ENCOUNTER 2023-01-02 07:27 | Observation (INO) | payer OTHER ==
[~2023-01-02] VITALS: Ht 167.6 cm; Wt 72.6 kg
[~2023-01-02 07:27] MED LIST changes: +MAGNESIUM OXID500 MG PO
[2023-01-02 08:12] LABS: BASOPHILS ABSOLUTE AUTO 0.06 K/mm3 (0.00-0.23); BASOPHILS PERCENT AUTO 1 % (0-2); EOSINOPHILS PERCENT AUTO 5 % (0-6); Hematocrit 35.7 % (33.0-51.0); Hemoglobin 11.7 g/dL (11.5-16.0); IMMATURE GRAN ABSOLUTE AUTO 0.01 K/mm3 (0.00-0.10); IMMATURE GRAN PERCENT AUTO 0 % (0-1); LYMPHOCYTES ABSOLUTE AUTO 2.12 K/mm3 (0.84-5.20); LYMPHOCYTES PERCENT AUTO 33 % (21-46); MONOCYTES ABSOLUTE AUTO 0.52 K/mm3 (0.16-1.47); MONOCYTES PERCENT AUTO 8 % (4-13); Mean Corpuscular HGB 28.4 pg (26.0-34.0); Mean Corpuscular HGB Conc 32.8 g/dL (31.5-36.5); Mean Corpuscular Volume 87 fL (80-100); Mean Platelet Volume 10.5 fL (9.1-12.4); NEUTROPHILS ABSOLUTE AUTO 3.47 K/mm3 (1.96-9.15); NEUTROPHILS PERCENT AUTO 54 % (41-73); Platelet Count 234 K/mm3 (150-400); RDW Coefficient Variation 14.5 % (11.7-14.2); RDW Standard Deviation 46.3 fL (35.1-46.3); Red Blood Cell Count 4.12 M/mm3 (3.80-5.20); White Blood Cell Count 6.48 K/mm3 (4.00-11.30)
[2023-01-02 08:21] LABS: Base Excess Venous 1.3 mmol/L; Bicarbonate Venous 25.2 mmol/L (24.0-30.0); PCO2 Venous 41.6 mmHg (38-42); pH Blood Venous 7.41 (7.34-7.37)
[2023-01-02 08:35] LABS: Source, Urine Straight Cath
[2023-01-02 08:50] LABS: Albumin, Blood 3.4 g/dL (3.4-5.0); Albumin/Globulin Ratio 0.9 (0.8-1.8); Bilirubin, Total 0.6 mg/dL (0.1-1.0); Bun/Creatinine Ratio 12.8 (12.0-20.0); Calcium, Blood 8.3 mg/dL (8.5-10.1); Creatinine, Blood 0.7 mg/dL (0.40-1.00); Globulin, Blood 3.6 g/dL (2.2-4.0); Potassium, Blood 3.8 mmol/L (3.5-5.5); Thyroid Stimulating Hormone 4.79 uIU/mL (0.360-4.800)
[2023-01-02 08:55] LABS: Appearance, Urine Clear (Clear); Bilirubin, Urine Neg (Neg); Blood, Urine Neg (Neg); Color, Urine Yellow (P-Yellow); Glucose Qualitative, Urine Neg (Neg); Ketones, Urine Neg (Neg); Leukocyte Esterase, Urine Neg (Neg); Nitrite, Urine Neg (Neg); Protein, Urine Neg (Neg); Urobilinogen, Urine NORM (Normal)
[2023-01-02] MEDS ORDERED: ESCI10 PO (10:07)
[2023-01-02] MEDS ORDERED: EUTHYROX100 MC1 PO (10:08)
[2023-01-02 10:49] LABS: CHOL/HDL RATIO 2.6; Cholesterol 176 mg/dL (50-200); HDL Cholesterol 68 mg/dL (>39); LDL/HDL RATIO 1.4; Low Density Lipoprotein Chol 94 mg/dL (0-110); Triglycerides 71 mg/dL (30-160); Very Low Density Lipoprot Chol 14 mg/dL (6-32)
[2023-01-02 13:20] VITALS: BP 155/78
[2023-01-02 14:43] LABS: Adenovirus Not Detected (NOT DETECT); Bordetella pertussis Not Detected (NOT DETECT); Chlamydophila pneumoniae Not Detected (NOT DETECT); Coronavirus 229E Not Detected (NOT DETECT); Coronavirus HKU1 Not Detected (NOT DETECT); Coronavirus NL63 Not Detected (NOT DETECT); Coronavirus OC43 Not Detected (NOT DETECT); Human Metapneumovirus Not Detected (NOT DETECT); Human Rhinovirus/Enterovirus Not Detected (NOT DETECT); Influenza A/2009-H1 Not Detected (NOT DETECT); Influenza A/H1 Not Detected (NOT DETECT); Influenza A/H3 Not Detected (NOT DETECT); Influenza B Not Detected (NOT DETECT); Mycoplasma pneumoniae Not Detected (NOT DETECT); Parainfluenza Virus 1 Not Detected (NOT DETECT); Parainfluenza Virus 2 Not Detected (NOT DETECT); Parainfluenza Virus 3 Not Detected (NOT DETECT); Parainfluenza Virus 4 Not Detected (NOT DETECT); Respiratory Syncytial Virus Not Detected (NOT DETECT); SARS-Cov-2 (COVID-19), BioFire Not Detected (NOT DETECT)
[2023-01-02 15:44] VITALS: BP 148/62
--- NOTE | 2023-01-02 16:15 | NUR ---
ER ADMIT Patient admitted for AMS, MD reported admitted to r/o CVA. Neuro checks Q4H, PERRLA intact. Patient appears anxious, verbalizing feeling anxious & feeling like the pressure is building up & she will become angry or began screaming. Patient asking for medications for anxiety. Atarax given, PRN ineffective. Patient unable to explain situation, and why she was admitted to the ER, she continues to report these feelings of anxiety building up inside and she might begin yelling. MD ordered 1x dose of IV ativan, PRN effective. Provided education on ignition sources & risk of injury when O2 in use. Patient verbalized understanding & denied having any sources in [facility]. Vitals stable, Full liquid diet ordered. Will continue plan of care.
--- NOTE | 2023-01-02 16:45 | NUR ---
"Spiritual Care Visit | Pt. request Pt. is resting but responds when I enter the room. Pt. welcomes my visit. Pt. displays evidence of being very weak, so this territory sales manager medical kept the visit short. Facilitated a very short life review and prayed for the Pt. The Pt displayed evidence of been comforted, and actually prayed along with this territory sales manager medical. The Pt. verbalized gratitude for the spiritual care visit."
[2023-01-02 20:15] VITALS: BP 119/89
--- NOTE | 2023-01-03 04:00 | NUR ---
SHIFT SUMMARY. SHIFT HAS BEEN UNREMARKABLE. PT HAS BEEN SOMNOLENT THROUGHOUT SHIFT BUT AOX3-4, PLEASANT, COOPERATIVE WITH CARE. NEURO CHECKS COMPLETED Q4 PER ORDERS. NO COMPLAINTS OF PAIN. NO REPORTED FEELINGS OF ANXIETY. HAS SLEPT THROUGH MOST OF SHIFT. STEADY SBA TO BEDSIDE COMMODE. CALLS APPROPRIATELY AND MAKES NEEDS KNOWN. BED LOCKED IN LOWEST POSITION. CALL LIGHT LEFT WITHIN REACH.
[2023-01-03 04:35] VITALS: BP 130/67
[2023-01-03 05:05] LABS: BASOPHILS ABSOLUTE AUTO 0.05 K/mm3 (0.00-0.23); BASOPHILS PERCENT AUTO 1 % (0-2); EOSINOPHILS PERCENT AUTO 4 % (0-6); Hematocrit 36.6 % (33.0-51.0); Hemoglobin 11.8 g/dL (11.5-16.0); IMMATURE GRAN ABSOLUTE AUTO 0.01 K/mm3 (0.00-0.10); IMMATURE GRAN PERCENT AUTO 0 % (0-1); LYMPHOCYTES ABSOLUTE AUTO 2.26 K/mm3 (0.84-5.20); LYMPHOCYTES PERCENT AUTO 31 % (21-46); MONOCYTES ABSOLUTE AUTO 0.75 K/mm3 (0.16-1.47); MONOCYTES PERCENT AUTO 10 % (4-13); Mean Corpuscular HGB 27.8 pg (26.0-34.0); Mean Corpuscular HGB Conc 32.2 g/dL (31.5-36.5); Mean Corpuscular Volume 86 fL (80-100); Mean Platelet Volume 10.5 fL (9.1-12.4); NEUTROPHILS ABSOLUTE AUTO 4.05 K/mm3 (1.96-9.15); NEUTROPHILS PERCENT AUTO 55 % (41-73); Platelet Count 212 K/mm3 (150-400); RDW Coefficient Variation 14.4 % (11.7-14.2); RDW Standard Deviation 45.5 fL (35.1-46.3); Red Blood Cell Count 4.24 M/mm3 (3.80-5.20); White Blood Cell Count 7.42 K/mm3 (4.00-11.30)
[2023-01-03 06:29] LABS: Albumin, Blood 3.3 g/dL (3.4-5.0); Albumin/Globulin Ratio 0.9 (0.8-1.8); Bilirubin, Total 0.6 mg/dL (0.1-1.0); Bun/Creatinine Ratio 12.5 (12.0-20.0); Calcium, Blood 8.9 mg/dL (8.5-10.1); Creatinine, Blood 0.72 mg/dL (0.40-1.00); Globulin, Blood 3.5 g/dL (2.2-4.0); Potassium, Blood 3.9 mmol/L (3.5-5.5); Total Protein, Blood 6.8 g/dL (6.4-8.2)
[2023-01-03 07:33] VITALS: BP 154/64
--- NOTE | 2023-01-03 15:38 | NUR ---
Patient medically stable for discharge. Provided education on ignition sources & injury when O2 in use. Patient verbalized understanding & denied having any sources in belongings. Educated on discharge instructions pt & family verbalized understanding. Removed IV from right AC. Patient left unit at 1530.
== END 2023-01-03 14:59 | disposition home or self-care (01) ==
LOC: ER 07:27 → MEDS 07:28
PROVIDERS: Emergency Medicine; Family Medicine; Student in an Organized Health Care Education/Training Program; ADMIT Hospitalist
DX: G93.41 Metabolic encephalopathy (principal); R10.9 Unspecified abdominal pain; R53.1 Weakness; E03.9 Hypothyroidism, unspecified; L81.8 Other specified disorders of pigmentation; F03.90 Unspecified dementia, unspecified severity, without behavioral disturbance, psychotic disturbance, mood disturbance, and anxiety; Z95.2 Presence of prosthetic heart valve
CPT/HCPCS: 0202U; 36415; 70450; 70496; 70498; 71045; 80053; 80061; 81003; 82803; 82947; 83036; 83605; 84145; 84443; 84484; 85025; 85651; 86140; 93005; 93010; 96372; 96374; 97110; 97161; 97166; 99285-25; A9270; G0378; J1650; J2060; P9612; Q9967

== ENCOUNTER → 2023-01-21 | Outpatient (CLI) | payer OTHER ==
[~2023-01-21] MED LIST changes: +ESCI10 PO; +EUTHYROX100 MC1 PO
[2023-01-21 14:00] LABS: BASOPHILS ABSOLUTE AUTO 0.09 K/mm3 (0.00-0.23); BASOPHILS PERCENT AUTO 1 % (0-2); EOSINOPHILS ABSOLUTE AUTO 0.49 K/mm3 (0.00-0.68); EOSINOPHILS PERCENT AUTO 8 % (0-6); Hemoglobin 13.2 g/dL (11.5-16.0); IMMATURE GRAN ABSOLUTE AUTO 0.02 K/mm3 (0.00-0.10); IMMATURE GRAN PERCENT AUTO 0 % (0-1); LYMPHOCYTES ABSOLUTE AUTO 1.84 K/mm3 (0.84-5.20); LYMPHOCYTES PERCENT AUTO 28 % (21-46); MONOCYTES ABSOLUTE AUTO 0.46 K/mm3 (0.16-1.47); MONOCYTES PERCENT AUTO 7 % (4-13); Mean Corpuscular HGB Conc 31.4 g/dL (31.5-36.5); Mean Corpuscular Volume 89 fL (80-100); Mean Platelet Volume 10.8 fL (9.1-12.4); NEUTROPHILS ABSOLUTE AUTO 3.58 K/mm3 (1.96-9.15); NEUTROPHILS PERCENT AUTO 55 % (41-73); Platelet Count 248 K/mm3 (150-400); RDW Coefficient Variation 15.2 % (11.7-14.2); RDW Standard Deviation 49.6 fL (35.1-46.3); Red Blood Cell Count 4.71 M/mm3 (3.80-5.20); White Blood Cell Count 6.48 K/mm3 (4.00-11.30)
[2023-01-21 17:50] LABS: Alanine Aminotransfer (ALT/SGP 15 U/L (12-78); Alk Phos 87 U/L (50-136); Anion Gap 4 mmol/L (6-16); Aspartate Aminotrans (AST/SGOT 21 U/L (12-37); Bilirubin, Total 0.5 mg/dL (0.1-1.0); Blood Urea Nitrogen 10 mg/dL (8-24); Bun/Creatinine Ratio 12.9 (12.0-20.0); CO2, Blood 30 mmol/L (21-32); Calcium, Blood 9.4 mg/dL (8.5-10.1); Chloride, Blood 107 mmol/L (98-108); Cholesterol 196 mg/dL (50-200); Creatinine, Blood 0.78 mg/dL (0.40-1.00); Globulin, Blood 3.9 g/dL (2.2-4.0); Glomerular Filtration Rate 77 (60-); Glucose, Blood 103 mg/dL (70-99); HDL Cholesterol 65 mg/dL (>39); LDL/HDL RATIO 1.6; Low Density Lipoprotein Chol 107 mg/dL (0-110); Potassium, Blood 3.7 mmol/L (3.5-5.5); Sodium, Blood 141 mmol/L (136-145); Total Protein, Blood 7.9 g/dL (6.4-8.2); Triglycerides 121 mg/dL (30-160); Very Low Density Lipoprot Chol 24 mg/dL (6-32)
== END ==
LOC: LAB SHORT 12:37 → LAB 12:37
PROVIDERS: Physician Assistant
DX: I10 Essential (primary) hypertension (principal); E78.5 Hyperlipidemia, unspecified; E03.9 Hypothyroidism, unspecified
CPT/HCPCS: 80053; 80061; 84443; 85025

== ENCOUNTER 2023-03-28 09:25 | Emergency (ER) | payer OTHER ==
[~2023-03-28] VITALS: Ht 165.1 cm; Wt 72.6 kg
[2023-03-28 10:02] LABS: BASOPHILS ABSOLUTE AUTO 0.06 K/mm3 (0.00-0.23); BASOPHILS PERCENT AUTO 1 % (0-2); EOSINOPHILS ABSOLUTE AUTO 0.29 K/mm3 (0.00-0.68); EOSINOPHILS PERCENT AUTO 5 % (0-6); Hematocrit 38.3 % (33.0-51.0); Hemoglobin 12.4 g/dL (11.5-16.0); IMMATURE GRAN ABSOLUTE AUTO 0.01 K/mm3 (0.00-0.10); IMMATURE GRAN PERCENT AUTO 0 % (0-1); LYMPHOCYTES ABSOLUTE AUTO 2.01 K/mm3 (0.84-5.20); LYMPHOCYTES PERCENT AUTO 34 % (21-46); MONOCYTES ABSOLUTE AUTO 0.46 K/mm3 (0.16-1.47); MONOCYTES PERCENT AUTO 8 % (4-13); Mean Corpuscular HGB 28.6 pg (26.0-34.0); Mean Corpuscular HGB Conc 32.4 g/dL (31.5-36.5); Mean Corpuscular Volume 89 fL (80-100); Mean Platelet Volume 10.3 fL (9.1-12.4); NEUTROPHILS PERCENT AUTO 52 % (41-73); Platelet Count 221 K/mm3 (150-400); RDW Coefficient Variation 14.7 % (11.7-14.2); RDW Standard Deviation 47.9 fL (35.1-46.3); Red Blood Cell Count 4.33 M/mm3 (3.80-5.20); White Blood Cell Count 5.93 K/mm3 (4.00-11.30)
[2023-03-28 10:20] LABS: Source, Urine Straight Cath
[2023-03-28 10:22] LABS: Albumin, Blood 3.7 g/dL (3.4-5.0); Bilirubin, Total 0.6 mg/dL (0.1-1.0); Bun/Creatinine Ratio 12.5 (12.0-20.0); Calcium, Blood 8.6 mg/dL (8.5-10.1); Creatinine, Blood 0.72 mg/dL (0.40-1.00); Globulin, Blood 3.8 g/dL (2.2-4.0); Potassium, Blood 3.9 mmol/L (3.5-5.5); Thyroid Stimulating Hormone 13.4 uIU/mL (0.360-4.800); Total Protein, Blood 7.5 g/dL (6.4-8.2)
[2023-03-28 10:25] LABS: Appearance, Urine Clear (Clear); Bilirubin, Urine Neg (Neg); Blood, Urine Neg (Neg); Glucose Qualitative, Urine Neg (Neg); Ketones, Urine Neg (Neg); Leukocyte Esterase, Urine Neg (Neg); Nitrite, Urine Neg (Neg); Protein, Urine Neg (Neg); Specific Gravity, Urine 1.015 (1.003-1.022); Urobilinogen, Urine NORM (Normal)
[2023-03-28 10:26] LABS: Color, Urine Pale Yellow (P-Yellow)
[2023-03-28 10:49] LABS: Influenza A, PCR NEGATIVE (NEGATIVE); Influenza B, PCR NEGATIVE (NEGATIVE); Resp Syncytial Virus, PCR NEGATIVE (NEGATIVE); SARS-Cov-2 (COVID-19) PCR, MMC NEGATIVE (NEGATIVE)
[2023-03-28 12:00] VITALS: BP 172/67
== END 2023-03-28 13:00 | disposition home or self-care (01) ==
LOC: ER 09:25
PROVIDERS: Emergency Medicine
DX: E03.9 Hypothyroidism, unspecified (principal); G89.29 Other chronic pain; R53.1 Weakness; Z85.3 Personal history of malignant neoplasm of breast; F03.90 Unspecified dementia, unspecified severity, without behavioral disturbance, psychotic disturbance, mood disturbance, and anxiety; Z20.822 Contact with and (suspected) exposure to COVID-19; Z88.2 Allergy status to sulfonamides; Z91.048 Other nonmedicinal substance allergy status; Z88.1 Allergy status to other antibiotic agents; Z91.013 Allergy to seafood; Z79.01 Long term (current) use of anticoagulants; Z79.899 Other long term (current) drug therapy
CPT/HCPCS: 0241U; 80053; 81003; 84443; 85025; 96374; 99285-25; J1885

== ENCOUNTER 2023-05-02 11:02 | Emergency (ER) | payer OTHER ==
[~2023-05-02] VITALS: Ht 165.1 cm; Wt 63.5 kg
[2023-05-02 11:32] LABS: BASOPHILS ABSOLUTE AUTO 0.06 K/mm3 (0.00-0.23); BASOPHILS PERCENT AUTO 1 % (0-2); EOSINOPHILS PERCENT AUTO 2 % (0-6); Hematocrit 38.5 % (33.0-51.0); Hemoglobin 12.4 g/dL (11.5-16.0); IMMATURE GRAN ABSOLUTE AUTO 0.01 K/mm3 (0.00-0.10); IMMATURE GRAN PERCENT AUTO 0 % (0-1); LYMPHOCYTES ABSOLUTE AUTO 1.12 K/mm3 (0.84-5.20); LYMPHOCYTES PERCENT AUTO 21 % (21-46); MONOCYTES ABSOLUTE AUTO 0.84 K/mm3 (0.16-1.47); MONOCYTES PERCENT AUTO 16 % (4-13); Mean Corpuscular HGB Conc 32.2 g/dL (31.5-36.5); Mean Corpuscular Volume 90 fL (80-100); NEUTROPHILS ABSOLUTE AUTO 3.25 K/mm3 (1.96-9.15); NEUTROPHILS PERCENT AUTO 60 % (41-73); Platelet Count 198 K/mm3 (150-400); RDW Coefficient Variation 14.6 % (11.7-14.2); RDW Standard Deviation 48.3 fL (35.1-46.3); Red Blood Cell Count 4.27 M/mm3 (3.80-5.20); White Blood Cell Count 5.38 K/mm3 (4.00-11.30)
[2023-05-02] MEDS ORDERED: EUTHYROX100 MC1 PO (11:35)
[2023-05-02] MEDS ORDERED: DONEPEZIL HCL10 M1 PO (11:35)
[2023-05-02] MEDS ORDERED: MEMANTINE HCL511 PO (11:36)
[2023-05-02 11:52] LABS: Source, Urine Voided
[2023-05-02 12:01] LABS: Appearance, Urine Clear (Clear); Bilirubin, Urine Neg (Neg); Blood, Urine Neg (Neg); Color, Urine Yellow (P-Yellow); Glucose Qualitative, Urine Neg (Neg); Ketones, Urine Neg (Neg); Leukocyte Esterase, Urine Neg (Neg); Nitrite, Urine Neg (Neg); Protein, Urine Neg (Neg); Specific Gravity, Urine 1.005 (1.003-1.022); Urobilinogen, Urine NORM (Normal)
[2023-05-02 12:07] LABS: Albumin, Blood 3.7 g/dL (3.4-5.0); Bilirubin, Total 0.5 mg/dL (0.1-1.0); Calcium, Blood 8.3 mg/dL (8.5-10.1); Creatinine, Blood 0.67 mg/dL (0.40-1.00); Globulin, Blood 3.7 g/dL (2.2-4.0); Potassium, Blood 3.5 mmol/L (3.5-5.5); Total Protein, Blood 7.4 g/dL (6.4-8.2)
[2023-05-02 12:43] LABS: Base Excess Venous 0.1 mmol/L; Bicarbonate Venous 24.2 mmol/L (24.0-30.0); PCO2 Venous 40.5 mmHg (38-42)
[2023-05-02 15:34] VITALS: BP 128/68
== END 2023-05-02 15:34 | disposition home or self-care (01) ==
LOC: ER 11:02
PROVIDERS: Emergency Medicine
DX: R53.1 Weakness (principal); R41.0 Disorientation, unspecified; Z87.891 Personal history of nicotine dependence
CPT/HCPCS: 71045; 80053; 81003; 82140; 82803; 85025; 93005; 93010; 96360; 99285-25; J7030

== ENCOUNTER 2023-06-25 09:17 | Emergency (ER) | payer OTHER ==
[~2023-06-25] VITALS: Ht 167.6 cm; Wt 77.1 kg
[~2023-06-25 09:17] MED LIST changes: +DONEPEZIL HCL10 M1 PO; +MEMANTINE HCL511 PO
[2023-06-25 10:16] LABS: BASOPHILS ABSOLUTE AUTO 0.08 K/mm3 (0.00-0.23); BASOPHILS PERCENT AUTO 1 % (0-2); EOSINOPHILS PERCENT AUTO 5 % (0-6); Hematocrit 38.1 % (33.0-51.0); Hemoglobin 12.2 g/dL (11.5-16.0); IMMATURE GRAN ABSOLUTE AUTO 0.01 K/mm3 (0.00-0.10); IMMATURE GRAN PERCENT AUTO 0 % (0-1); LYMPHOCYTES PERCENT AUTO 32 % (21-46); MONOCYTES ABSOLUTE AUTO 0.49 K/mm3 (0.16-1.47); MONOCYTES PERCENT AUTO 7 % (4-13); Mean Corpuscular HGB 28.6 pg (26.0-34.0); Mean Corpuscular Volume 89 fL (80-100); Mean Platelet Volume 10.9 fL (9.1-12.4); NEUTROPHILS PERCENT AUTO 55 % (41-73); Platelet Count 215 K/mm3 (150-400); RDW Coefficient Variation 14.6 % (11.7-14.2); RDW Standard Deviation 47.8 fL (35.1-46.3); Red Blood Cell Count 4.26 M/mm3 (3.80-5.20); White Blood Cell Count 6.58 K/mm3 (4.00-11.30)
[2023-06-25 10:22] LABS: Albumin, Blood 3.4 g/dL (3.4-5.0); Albumin/Globulin Ratio 0.9 (0.8-1.8); Bilirubin, Total 0.4 mg/dL (0.1-1.0); Calcium, Blood 8.3 mg/dL (8.5-10.1); Creatinine, Blood 0.74 mg/dL (0.40-1.00); Globulin, Blood 3.8 g/dL (2.2-4.0); Potassium, Blood 3.7 mmol/L (3.5-5.5); Total Protein, Blood 7.2 g/dL (6.4-8.2)
[2023-06-25 10:53] LABS: Free Thyroxine 0.81 ng/dL (0.70-1.60); Thyroid Stimulating Hormone 4.49 uIU/mL (0.360-4.800)
[2023-06-25 10:55] LABS: Source, Urine Straight Cath
[2023-06-25 11:04] LABS: Appearance, Urine Clear (Clear); Bilirubin, Urine Neg (Neg); Blood, Urine Neg (Neg); Color, Urine Yellow (P-Yellow); Glucose Qualitative, Urine Neg (Neg); Ketones, Urine Neg (Neg); Leukocyte Esterase, Urine Neg (Neg); Nitrite, Urine Neg (Neg); Protein, Urine Neg (Neg); Specific Gravity, Urine 1.015 (1.003-1.022); Urobilinogen, Urine NORM (Normal)
[2023-06-25 11:25] LABS: U Amphetamine Screen Not Detected; U Barbituate Screen Not Detected; U Benzodiazapine Screen Not Detected; U Buprenorphine Screen Not Detected; U Cannabinoids Screen Not Detected; U Cocaine Screen Not Detected; U Methadone Screen Not Detected; U Methamphetamine Screen Not Detected; U Opiates Screen Not Detected; U Oxycodone Screen Not Detected; U Phencyclidine Screen Not Detected
[2023-06-25 11:31] LABS: Influenza A, PCR NEGATIVE (NEGATIVE); Influenza B, PCR NEGATIVE (NEGATIVE); Resp Syncytial Virus, PCR NEGATIVE (NEGATIVE); SARS-Cov-2 (COVID-19) PCR, MMC NEGATIVE (NEGATIVE)
[2023-06-25 13:30] VITALS: BP 160/99
== END 2023-06-25 14:01 | disposition home or self-care (01) ==
LOC: ER 09:17
PROVIDERS: Emergency Medicine
DX: R53.1 Weakness (principal); T44.3X5A Adverse effect of other parasympatholytics [anticholinergics and antimuscarinics] and spasmolytics, initial encounter; F03.90 Unspecified dementia, unspecified severity, without behavioral disturbance, psychotic disturbance, mood disturbance, and anxiety; E03.9 Hypothyroidism, unspecified; I48.91 Unspecified atrial fibrillation; Z79.01 Long term (current) use of anticoagulants; Z79.899 Other long term (current) drug therapy; Z88.1 Allergy status to other antibiotic agents; Z88.2 Allergy status to sulfonamides; Z91.013 Allergy to seafood; Z91.048 Other nonmedicinal substance allergy status
CPT/HCPCS: 0241U; 71045; 80053; 81003; 84145; 84439; 84443; 85025; 93005; 93010; 96360-59; 99285-25; J7030; P9612

== ENCOUNTER 2023-11-20 00:50 | Emergency (ER) | payer OTHER ==
[~2023-11-20] VITALS: Ht 170.2 cm; Wt 81.7 kg
[~2023-11-20 00:50] MED LIST changes: +LIDO700A20 TOP
[2023-11-20 01:05] LABS: Calcium, Ionized (POC) 1.19 mmol/L (1.10-1.46); Chloride (POC) 105 mmol/L (98-108); Creatinine (POC) 0.8 mg/dL (0.6-1.0); Glucose (ISTAT POC) 100 mg/dL (70-99); Hemoglobin (POC) 12.6 g/dL (12.0-16.0); Potassium (POC) 3.7 mmol/L (3.5-5.5); Sodium (POC) 141 mmol/L (135-148); Total CO2 (POC) 25 mmol/L (21-32)
[2023-11-20] MEDS ORDERED: DABI150C (01:14)
[2023-11-20 01:17] LABS: BASOPHILS PERCENT AUTO 1 % (0-2); EOSINOPHILS ABSOLUTE AUTO 0.41 K/mm3 (0.00-0.68); EOSINOPHILS PERCENT AUTO 6 % (0-6); Hematocrit 36.2 % (33.0-51.0); Hemoglobin 11.5 g/dL (11.5-16.0); IMMATURE GRAN ABSOLUTE AUTO 0.02 K/mm3 (0.00-0.10); IMMATURE GRAN PERCENT AUTO 0 % (0-1); LYMPHOCYTES ABSOLUTE AUTO 2.38 K/mm3 (0.84-5.20); LYMPHOCYTES PERCENT AUTO 34 % (21-46); MONOCYTES ABSOLUTE AUTO 0.76 K/mm3 (0.16-1.47); MONOCYTES PERCENT AUTO 11 % (4-13); Mean Corpuscular HGB 28.4 pg (26.0-34.0); Mean Corpuscular HGB Conc 31.8 g/dL (31.5-36.5); Mean Corpuscular Volume 89 fL (80-100); Mean Platelet Volume 10.1 fL (9.1-12.4); NEUTROPHILS ABSOLUTE AUTO 3.29 K/mm3 (1.96-9.15); NEUTROPHILS PERCENT AUTO 47 % (41-73); Platelet Count 205 K/mm3 (150-400); RDW Coefficient Variation 14.3 % (11.7-14.2); RDW Standard Deviation 46.5 fL (35.1-46.3); Red Blood Cell Count 4.05 M/mm3 (3.80-5.20); White Blood Cell Count 6.96 K/mm3 (4.00-11.30)
[2023-11-20 01:29] LABS: Albumin, Blood 3.6 g/dL (3.4-5.0); Bilirubin, Total 0.3 mg/dL (0.1-1.0); Bun/Creatinine Ratio 15.4 (12.0-20.0); Calcium, Blood 9.2 mg/dL (8.5-10.1); Creatinine, Blood 0.78 mg/dL (0.40-1.00); Globulin, Blood 3.6 g/dL (2.2-4.0); Potassium, Blood 3.8 mmol/L (3.5-5.5); Total Protein, Blood 7.2 g/dL (6.4-8.2)
[2023-11-20 07:45] VITALS: BP 160/79
== END 2023-11-20 07:46 | disposition home or self-care (01) ==
LOC: ER 00:50
PROVIDERS: Emergency Medicine
DX: R07.9 Chest pain, unspecified (principal); Z88.2 Allergy status to sulfonamides; Z88.1 Allergy status to other antibiotic agents; Z91.048 Other nonmedicinal substance allergy status; Z91.013 Allergy to seafood; Z79.899 Other long term (current) drug therapy
CPT/HCPCS: 71046; 80047; 80053; 83690; 84484; 85014; 85025; 93005; 93010; 99285-25

== ENCOUNTER 2024-05-07 22:24 | Emergency (ER) | payer OTHER ==
[~2024-05-07] VITALS: Ht 165.1 cm; Wt 70.3 kg
[~2024-05-07 22:24] MED LIST changes: +DABI150C
[2024-05-07 22:41] LABS: BASOPHILS ABSOLUTE AUTO 0.05 K/mm3 (0.00-0.23); BASOPHILS PERCENT AUTO 1 % (0-2); EOSINOPHILS ABSOLUTE AUTO 0.09 K/mm3 (0.00-0.68); EOSINOPHILS PERCENT AUTO 1 % (0-6); Hematocrit 39.4 % (33.0-51.0); Hemoglobin 12.8 g/dL (11.5-16.0); IMMATURE GRAN ABSOLUTE AUTO 0.02 K/mm3 (0.00-0.10); IMMATURE GRAN PERCENT AUTO 0 % (0-1); LYMPHOCYTES ABSOLUTE AUTO 0.78 K/mm3 (0.84-5.20); LYMPHOCYTES PERCENT AUTO 9 % (21-46); MONOCYTES PERCENT AUTO 11 % (4-13); Mean Corpuscular HGB 28.7 pg (26.0-34.0); Mean Corpuscular HGB Conc 32.5 g/dL (31.5-36.5); Mean Corpuscular Volume 88 fL (80-100); Mean Platelet Volume 10.2 fL (9.1-12.4); NEUTROPHILS ABSOLUTE AUTO 6.56 K/mm3 (1.96-9.15); NEUTROPHILS PERCENT AUTO 78 % (41-73); Platelet Count 179 K/mm3 (150-400); RDW Coefficient Variation 14.3 % (11.7-14.2); RDW Standard Deviation 45.9 fL (35.1-46.3); Red Blood Cell Count 4.46 M/mm3 (3.80-5.20)
[2024-05-07 23:06] LABS: Albumin, Blood 3.7 g/dL (3.4-5.0); Bilirubin, Total 0.5 mg/dL (0.1-1.0); Calcium, Blood 8.9 mg/dL (8.5-10.1); Creatinine, Blood 0.82 mg/dL (0.40-1.00); Globulin, Blood 3.8 g/dL (2.2-4.0); Magnesium, Blood 1.8 mg/dL (1.6-2.4); Phosphorus, Blood 2.4 mg/dL (2.5-4.9); Potassium, Blood 3.8 mmol/L (3.5-5.5); Total Protein, Blood 7.5 g/dL (6.4-8.2)
[2024-05-07] MEDS ORDERED: Acetaminophen 500 MG Tab PO ONE (23:35)
[2024-05-07] MEDS ORDERED: CefTRIAXone Sodium 1,000 MG in NS 100 ML IV ONE (23:35)
[2024-05-07] MEDS ORDERED: Doxycycline Hyclate 100 MG in Dextrose 5% 250 ML IV ONE (23:35)
[2024-05-07 23:49] LABS: Influenza B, PCR NEGATIVE (NEGATIVE); Resp Syncytial Virus, PCR NEGATIVE (NEGATIVE); SARS-Cov-2 (COVID-19) PCR, MMC NEGATIVE (NEGATIVE)
[2024-05-08 00:03] LABS: Influenza A, PCR POSITIVE (NEGATIVE)
[2024-05-08 00:14] LABS: Source, Urine Clean Catch
[2024-05-08 00:16] LABS: Appearance, Urine Clear (Clear); Bilirubin, Urine Neg (Neg); Blood, Urine Neg (Neg); Color, Urine Yellow (P-Yellow); Glucose Qualitative, Urine Neg (Neg); Ketones, Urine Neg (Neg); Leukocyte Esterase, Urine Neg (Neg); Nitrite, Urine Neg (Neg); Protein, Urine Neg (Neg); Specific Gravity, Urine 1.015 (1.003-1.022); Urobilinogen, Urine NORM (Normal); pH, Urine 6.5 (5.0-8.0)
[2024-05-08] MEDS ORDERED: DOXY100 PO ×2 (01:06→10:21)
[2024-05-08] MEDS ORDERED: ACET500 PO ×2 (01:06→10:21)
[2024-05-08] MEDS ORDERED: OSELTAMIVIR PHO PO ×2 (01:06→10:21)
[2024-05-08] MEDS ORDERED: AMOCLA875 PO ×2 (01:06→10:21)
[2024-05-08 01:30] VITALS: BP 111/91
== END 2024-05-08 02:55 | disposition home or self-care (01) ==
LOC: ER 22:24
PROVIDERS: Emergency Medicine
DX: J10.00 Influenza due to other identified influenza virus with unspecified type of pneumonia (principal); E03.9 Hypothyroidism, unspecified; F03.90 Unspecified dementia, unspecified severity, without behavioral disturbance, psychotic disturbance, mood disturbance, and anxiety; I48.91 Unspecified atrial fibrillation; Z87.891 Personal history of nicotine dependence; Z88.2 Allergy status to sulfonamides; Z91.048 Other nonmedicinal substance allergy status; Z88.1 Allergy status to other antibiotic agents; Z91.013 Allergy to seafood; Z88.8 Allergy status to other drugs, medicaments and biological substances; Z79.01 Long term (current) use of anticoagulants; Z79.890 Hormone replacement therapy; Z79.899 Other long term (current) drug therapy
CPT/HCPCS: 0241U; 36415; 71045; 80053; 81003; 83605; 83735; 84100; 84145; 85025; 87040; 96365; 96366; 96367; 99284-25; A9270; J0696; J7060; P9612

== ENCOUNTER 2025-02-22 19:11 | Emergency (ER) | payer OTHER ==
[~2025-02-22] VITALS: Ht 167.6 cm; Wt 90.7 kg
[~2025-02-22 19:11] MED LIST changes: +ACET500 PO; +DOXY100 PO; +OSELTAMIVIR PHO PO
[2025-02-22] MEDS ORDERED: Ondansetron HCl 2 MG / ML 2ML Vial IV ONE (19:25)
[2025-02-22 19:44] LABS: BASOPHILS ABSOLUTE AUTO 0.09 K/mm3 (0.00-0.23); BASOPHILS PERCENT AUTO 1 % (0-2); EOSINOPHILS ABSOLUTE AUTO 0.16 K/mm3 (0.00-0.68); EOSINOPHILS PERCENT AUTO 1 % (0-6); Hematocrit 40.3 % (33.0-51.0); Hemoglobin 13.0 g/dL (11.5-16.0); IMMATURE GRAN ABSOLUTE AUTO 0.06 K/mm3 (0.00-0.10); IMMATURE GRAN PERCENT AUTO 0 % (0-1); LYMPHOCYTES ABSOLUTE AUTO 2.47 K/mm3 (0.84-5.20); LYMPHOCYTES PERCENT AUTO 18 % (21-46); MONOCYTES ABSOLUTE AUTO 1.01 K/mm3 (0.16-1.47); MONOCYTES PERCENT AUTO 8 % (4-13); Mean Corpuscular HGB Conc 32.3 g/dL (31.5-36.5); Mean Corpuscular Volume 90 fL (80-100); NEUTROPHILS ABSOLUTE AUTO 9.68 K/mm3 (1.96-9.15); NEUTROPHILS PERCENT AUTO 72 % (41-73); NRBC ABSOLUTE 0.00 K/mm3 (0.00-0.02); NRBC Auto 0.0 /100 WBC (0.0-0.2); RDW Coefficient Variation 14.1 % (11.7-14.2); RDW Standard Deviation 46.5 fL (35.1-46.3)
[2025-02-22] MEDS ORDERED: Ipratropium/Albuterol SulF 2.5-0.5MG/3 ML Amp INH ONE (19:50)
[2025-02-22 19:52] LABS: pH Blood Venous 7.43 (7.34-7.37)
[2025-02-22 20:03] LABS: Alanine Aminotransfer (ALT/SGP 17.0 U/L (12-78); Albumin, Blood 3.4 g/dL (3.4-5.0); Albumin/Globulin Ratio 1.0 (0.8-1.8); Anion Gap 9.0 mmol/L (3-11); Aspartate Aminotrans (AST/SGOT 39.0 U/L (12-37); Bilirubin, Total 0.5 mg/dL (0.1-1.0); Blood Urea Nitrogen 9.0 mg/dL (8-24); CO2, Blood 23.0 mmol/L (21-32); Calcium, Blood 7.2 mg/dL (8.5-10.1); Chloride, Blood 110.0 mmol/L (98-108); Creatinine, Blood 0.61 mg/dL (0.40-1.00); Globulin, Blood 3.3 g/dL (2.2-4.0); Glucose, Blood 103.0 mg/dL (70-99); Potassium, Blood 3.9 mmol/L (3.5-5.5); Sodium, Blood 138.0 mmol/L (136-145); Total Protein, Blood 6.7 g/dL (6.4-8.2)
[2025-02-22 20:57] LABS: Platelet Count 161 K/mm3 (150-400)
[2025-02-22 21:14] LABS: Source, Urine Straight Cath
[2025-02-22 21:18] LABS: Bilirubin, Urine Neg (Neg); Glucose Qualitative, Urine Neg (Neg); Ketones, Urine Neg (Neg); Leukocyte Esterase, Urine Neg (Neg); Protein, Urine 1+ (Neg); Specific Gravity, Urine 1.010 (1.003-1.022); Urobilinogen, Urine NORM (Normal)
[2025-02-22 21:24] LABS: Color, Urine Pale Yellow (P-Yellow)
[2025-02-22 22:03] LABS: Influenza A, PCR NEGATIVE (NEGATIVE); Influenza B, PCR NEGATIVE (NEGATIVE); Resp Syncytial Virus, PCR NEGATIVE (NEGATIVE); SARS-Cov-2 (COVID-19) PCR, MMC NEGATIVE (NEGATIVE)
[2025-02-22] MEDS ORDERED: RX Prepack Albuterol 1 PREPACK/6.7 GM INH UD ONE (22:20)
[2025-02-22] MEDS ORDERED: ALBU90OI INH (22:21)
[2025-02-23 01:00] VITALS: BP 143/75
[2025-02-23] MEDS ORDERED: RX Prepack Albuterol 1 PREPACK/6.7 GM INH UD ONE (01:15)
== END 2025-02-23 01:30 | disposition home or self-care (01) ==
LOC: ER 19:11
PROVIDERS: Emergency Medicine
DX: R06.2 Wheezing (principal); R06.02 Shortness of breath; R10.9 Unspecified abdominal pain; E03.9 Hypothyroidism, unspecified; I48.91 Unspecified atrial fibrillation; Z87.891 Personal history of nicotine dependence; Z79.899 Other long term (current) drug therapy; Z88.2 Allergy status to sulfonamides; Z91.048 Other nonmedicinal substance allergy status; Z88.1 Allergy status to other antibiotic agents; Z91.013 Allergy to seafood; Z88.8 Allergy status to other drugs, medicaments and biological substances
CPT/HCPCS: 36415; 71045; 74177; 80053; 82803; 83605; 83880; 85025; 87040; 87637; 93005; 93010; 96374-59; 99285-25; A6590; A9270; J2405; Q9967